=== PATIENT | male | born 1960 | race Caucasian/White ===

== ENCOUNTER 2018-03-05 09:41 | Inpatient (IN) | payer MEDICAID, OTHER ==
[2018-03-05] MEDS ORDERED: Sodium Chloride 0.9% 1,000 ML IV SCH (09:45)
--- NOTE | 2018-03-05 09:48 | ED PDOC ---
NIHSS Stroke Scale - How Severe is the Stroke Level of Consciousness: 0=Alert LOC to Questions: 0=Both comments correct LOC to commands: 0=Obeys both correctly Best Gaze: 0=Normal Visual: 0=No visual loss Facial: 2=Partial (lower face paralysis) Motor Arm - Left: 0=No drift Motor Arm - Right: 2=Falls before 10 sec Motor Leg - Left: 0=No drift Motor Leg - Right: 1=Drift before 5 sec Limb Ataxia: 1=Present Upper or Lower Sensory: 0=Normal Best Language: 0=No aphasia Dysarthia: 1=Mild to moderate slurring Extinction & Inattention (Neglect): 0=Normal, no object Score: 7 Past Medical History - Medical History PMH: Diabetes, HTN, Hypercholesterolemia, Hyperlipidemia Denies: HIV, Chronic Kidney Disease - Home Medications Home Medications: Ambulatory Orders Medication Instructions Recorded Amlodipine Besylate/Benazepril 1 cap PO DAILY 07/23/14 [Lotrel 5-40 mg Capsule] Atorvastatin [Lipitor] 10 mg PO DAILY 07/23/14 Fenofibrate,Micronized 134 mg PO DAILY 07/23/14 [Fenofibrate] Glimepiride 4 mg PO DAILY 07/23/14 MetFORMIN [glucoPHAGE] 1,000 mg PO BID 07/23/14 - Allergies Allergies/Adverse Reactions: Allergies Allergy/AdvReac Type Severity Reaction Status Date / Time No Known Allergies Allergy Verified 03/05/18 09:43 Disposition - Disposition Forms: [employer] ([place])
[2018-03-05 10:12] LABS: BASO # 0.1 K/uL (0.0-0.2); BASO % 0.8 % (0.0-2.0); EOS # 0.1 K/uL (0.0-0.7); EOS % 1.5 % (0.0-4.0); HEMOGLOBIN 13.5 g/dL (12.0-18.0); LYMPH # 2.2 K/uL (1.0-4.3); MEAN CELL VOLUME 83.1 fl (80.0-94.0); MEAN CORPUSCULAR HEMOGLOBIN 28.2 pg (27.0-31.0); MEAN CORPUSCULAR HGB CONC 33.9 g/dL (33.0-37.0); MEAN PLATELET VOLUME 8.3 fl (7.2-11.7); MONO # 0.4 K/uL (0.0-0.8); MONO % 6.6 % (0.0-10.0); NEUT # 3.9 K/uL (1.8-7.0); NEUT % 58.1 % (50.0-75.0); RBC 4.79 Mil/uL (4.40-5.90); RED CELL DISTRIBUTION WIDTH 12.8 % (11.5-14.5); WHITE BLOOD COUNT 6.7 K/uL (4.8-10.8)
[2018-03-05 10:21] LABS: PARTIAL THROMBOPLASTIN TIME 32.3 Seconds (25.6-37.1); PROTHROMBIN TIME 11.5 Seconds (9.8-13.1)
[2018-03-05 10:24] LABS: ALB/GLOB RATIO 1.3 (1.0-2.1); ALBUMIN 4.1 g/dL (3.5-5.0); ALT/SGPT 30 U/L (21-72); AST/SGOT 26 U/L (17-59); BLOOD UREA NITROGEN 14 mg/dl (9-20); CALCIUM 9.1 mg/dL (8.4-10.2); GFR AFRICAN-AMERICAN > 60; GFR NON-AFRICAN AMERICAN > 60; HDL CHOLESTEROL 49 MG/DL (30-70)
--- NOTE | 2018-03-05 10:31 | CT ---
PROCEDURE: CT HEAD WITHOUT CONTRAST. HISTORY: code stroke COMPARISON: None available. TECHNIQUE: Axial computed tomography images were obtained through the head/brain without intravenous contrast. Radiation dose: Total exam DLP = an intraspinal ionic 1442.23 mGy-cm. This CT exam was performed using one or more of the following dose reduction techniques: Automated exposure control, adjustment of the mA and/or kV according to patient size, and/or use of iterative reconstruction technique. FINDINGS: HEMORRHAGE: Intraparenchymal hemorrhage identified in the left thalamus measuring 2.2 x 2.1 x 1.9 cm (transverse by anteroposterior by superoinferior dimensions). Limited local edema is seen surrounding the hemorrhage. No definite mass effect is exerted by this hemorrhage at this time and no additional intracranial hemorrhage is identified otherwise. Motion artifacts limit this examination significantly, particularly at the upper intracranial space. Added imaging was performed to attempt to overcome this problem which was not successful BRAIN: Intra colonic hemorrhage left thalamus as discussed above. Remainder the brain appears grossly nonfocal as imaged. Motion artifacts distort this examination significantly. VENTRICLES: Unremarkable. No hydrocephalus. CALVARIUM: Unremarkable. PARANASAL SINUSES: Unremarkable as visualized. No significant inflammatory changes. MASTOID AIR CELLS: Unremarkable as visualized. No inflammatory changes. OTHER FINDINGS: None. IMPRESSION: Intrathalamic acute intracranial hemorrhage is identified with trace peripheral edema and no definite midline shift. Remainder of the examination is nonfocal though compromised by extensive motion artifacts. Findings discussed with Dr. Melchor with written down and read back verification 03/05/2018 9:55 a.m..
[2018-03-05 10:35] LABS: LDL CHOLESTEROL 98 mg/dL (0-129)
--- NOTE | 2018-03-05 10:57 | RAD ---
HISTORY: Code Stroke COMPARISON: 06/06/2013 FINDINGS: LUNGS: No active pulmonary disease. PLEURA: No significant pleural effusion identified, no pneumothorax apparent. CARDIOVASCULAR: No radiographic findings to suggest acute or significant cardiovascular disease. OSSEOUS STRUCTURES: No significant abnormalities. VISUALIZED UPPER ABDOMEN: Normal. OTHER FINDINGS: None. IMPRESSION: No active disease. No significant interval change compared to the prior examination(s).
--- NOTE | 2018-03-05 11:45 | CP.PCM.CON ---
History of Present Illness - History of Present Illness History of Present Illness: 57 yr old right handed male, originally from the [facility], who was at work when he suddenly could not move his right arm and had difficulty finding words with confusion, with headache. He was brought to [facility] ER which showed a left sided basal ganglia bleed that does not have mass effect or midline shift, appearing to be acute. There is no record of seizure at onset of event, and he is not a TPA candidate. is not always compliant with his medications, as stated by son. On exam, patient was complaining of mild confusion, although he was able to name and repeat and tell me where he is. 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 Many years pack per day smoker, drinks alcohol daily per son. All :nkda. On exam: AAox3. PERRL. CN 2-12 normal. right sided facial droop. +dysarthria, no anomia or aphasia noted. No apraxia noted. motor: strength: right arm is 3/5, deltoid and biceps are 4-5, right shaker washer is 3/5 lower limb: flexors--4/5, extensors: 4+/5 There is no appreciable sensory loss, no decrease in ft, pin in arm or leg. position and vibration sense are intact +2 dtr ul and ll bl. Toes downgoing no clonus. Past Patient History - Infectious Disease Hx of Infectious Diseases: None - Past Medical History & Family History Past Medical History?: Yes - Past Social History Smoking Status: Heavy Smoker > 10 Cigarettes Daily - CARDIAC Hx Hypercholesterolemia: Yes Hx Hypertension: Yes - PULMONARY Hx Respiratory Disorders: No - NEUROLOGICAL Hx Neurological Disorder: No - HEENT Hx HEENT Problems: No - RENAL Hx Chronic Kidney Disease: No - ENDOCRINE/METABOLIC Hx Endocrine Disorders: Yes Hx Diabetes Mellitus Type 2: Yes - HEMATOLOGICAL/ONCOLOGICAL Hx Human Immunodeficiency Virus (HIV): No - INTEGUMENTARY Hx Dermatological Problems: No - MUSCULOSKELETAL/RHEUMATOLOGICAL Hx Musculoskeletal Disorders: No - GASTROINTESTINAL Hx Gastrointestinal Disorders: No - GENITOURINARY/GYNECOLOGICAL Hx Genitourinary Disorders: No - PSYCHIATRIC Hx Psychophysiologic Disorder: No Hx Emotional Abuse: No Hx Physical Abuse: No Hx Substance Use: No - SURGICAL HISTORY Hx Surgeries: Yes Other/Comment: SHOULDER SX - ANESTHESIA Hx Anesthesia: Yes Hx Anesthesia Reactions: No Hx Malignant Hyperthermia: No Meds Allergies/Adverse Reactions: Allergies Allergy/AdvReac Type Severity Reaction Status Date / Time No Known Allergies Allergy Verified 03/05/18 09:43 - Medications Medications: Current Medications Sodium Chloride (Sodium Chloride 0.9%) 1,000 mls @ 100 mls/hr IV .Q10H GINGER Levetiracetam 750 mg/ Sodium (Chloride) 107.5 mls @ 215 mls/hr IVPB ONCE ONE Stop: 03/05/18 12:09 Results - Vital Signs Recent Vital Signs: Last Vital Signs Temp 98.4 F 03/05/18 10:41 Pulse 94 H 03/05/18 10:41 Resp 18 03/05/18 10:41 BP 149/71 03/05/18 10:41 Pulse Ox 97 03/05/18 10:41 - Labs Result Diagrams: 03/05/18 10:00 03/05/18 10:00 Labs: Laboratory Results - last 24 hr 03/05/18 03/05/18 03/05/18 10:00 10:00 10:00 WBC 6.7 RBC 4.79 Hgb 13.5 Hct 39.8 MCV 83.1 MCH 28.2 MCHC 33.9 RDW 12.8 Plt Count 212 MPV 8.3 Neut % (Auto) 58.1 Lymph % (Auto) 33.0 [place] % (Auto) 6.6 Eos % (Auto) 1.5 Baso % (Auto) 0.8 Neut # (Auto) 3.9 Lymph # (Auto) 2.2 [place] # (Auto) 0.4 Eos # (Auto) 0.1 Baso # (Auto) 0.1 PT 11.5 INR 1.0 APTT 32.3 Sodium 139 Potassium 4.1 Chloride 101 Carbon Dioxide 26 Anion Gap 16 BUN 14 Creatinine 0.8 Est GFR ( Amer) > 60 Est GFR (Non-Af Amer) > 60 Random Glucose 181 H Calcium 9.1 Total Bilirubin 0.4 AST 26 ALT 30 Alkaline Phosphatase 59 Troponin I < 0.0120 Total Protein 7.2 Albumin 4.1 Globulin 3.1 Albumin/Globulin Ratio 1.3 Triglycerides 146 Cholesterol 169 LDL Cholesterol Direct 98 HDL Cholesterol 49 Alcohol, Quantitative < 10 Blood Type Antibody Screen BBK History Checked 03/05/18 10:00 WBC RBC Hgb Hct MCV MCH MCHC RDW Plt Count MPV Neut % (Auto) Lymph % (Auto) [place] % (Auto) Eos % (Auto) Baso % (Auto) Neut # (Auto) Lymph # (Auto) [place] # (Auto) Eos # (Auto) Baso # (Auto) PT INR APTT Sodium Potassium Chloride Carbon Dioxide Anion Gap BUN Creatinine Est GFR ( Amer) Est GFR (Non-Af Amer) Random Glucose Calcium Total Bilirubin AST ALT Alkaline Phosphatase Troponin I Total Protein Albumin Globulin Albumin/Globulin Ratio Triglycerides Cholesterol LDL Cholesterol Direct HDL Cholesterol Alcohol, Quantitative Blood Type O NEGATIVE Antibody Screen Negative BBK History Checked Patient has bt - Imaging and Cardiology CT scan - head Status: Image reviewed by me, Report reviewed by me (CT head shows 2 cm by 1.9 cm thalamic hemorrhage. ) Assessment & Plan - Assessment and Plan (Free Text) Assessment: 57 yr old male with most likely hypertensive hemorrhage in left thalamus that is resulting in left sided weakness and dysarthria. At this point there is no surgical intervention. PLan: 1. Admit to ICU 2. Repeat CT head am 3. DVT prophylaxis with venodynes 4. PT.ST.OT Thank you, Dr. Clay
--- NOTE | 2018-03-05 12:40 | CP.PCM.HP ---
History of Present Illness - History of Present Illness History of Present Illness: CC: weakness HPI: 57M noncomplaint male, PMH HTN, HLD, DM, presents with acute onset of R sided facial droop, upper and lower extremity weakness, now mildly improving, also associated with some confusion and altered mental status. In ED, patient continued to have somnolence but arousable, CT showed thalamic hemorrhage. BP controlled to under 140 SBP. Neurology Consult, Dr. Clay appreciated, no surgical consult at this time. Keppra and PT, OT, Speech consulted. Admit to ICU for further close monitoring and management. HD stable, NAD. ROS: per HPI all other systems reviewed and negative PMSH: HTN, HLD, DM FH: denies SH: tobacco and ETOH daily Meds: noncomplaint Present on Admission - Present on Admission Any Indicators Present on Admission: No Past Patient History - Infectious Disease Hx of Infectious Diseases: None - Past Medical History & Family History Past Medical History?: Yes - Past Social History Smoking Status: Heavy Smoker > 10 Cigarettes Daily - CARDIAC Hx Hypercholesterolemia: Yes Hx Hypertension: Yes - PULMONARY Hx Respiratory Disorders: No - NEUROLOGICAL Hx Neurological Disorder: No - HEENT Hx HEENT Problems: No - RENAL Hx Chronic Kidney Disease: No - ENDOCRINE/METABOLIC Hx Endocrine Disorders: Yes - HEMATOLOGICAL/ONCOLOGICAL Hx AIDS: No Hx Human Immunodeficiency Virus (HIV): No - INTEGUMENTARY Hx Dermatological Problems: No - MUSCULOSKELETAL/RHEUMATOLOGICAL Hx Musculoskeletal Disorders: No - GASTROINTESTINAL Hx Gastrointestinal Disorders: No - GENITOURINARY/GYNECOLOGICAL Hx Genitourinary Disorders: No - PSYCHIATRIC Hx Psychophysiologic Disorder: No - SURGICAL HISTORY Hx Surgeries: Yes Other/Comment: SHOULDER SX - ANESTHESIA Hx Anesthesia: Yes Hx Anesthesia Reactions: No Hx Malignant Hyperthermia: No Meds Allergies/Adverse Reactions: Allergies Allergy/AdvReac Type Severity Reaction Status Date / Time No Known Allergies Allergy Verified 03/05/18 09:43 Physical Exam - Constitutional Additional comments: Vitals Reviewed GEN: WDWN, alert, cooperative HEENT: NCAT, PERRL, EOMI HEART: RRR, +S1S2, NO MRG LUNG: CTAB, NO WRR ABD: soft, NT, ND, No HSM, No masses EXT: normal pedal pulses, normal capillary refill NEURO: awake, alert, R sided upper and lower extremity weakness 2/5 SKIN: warm, dry PSYCH: normal mood, normal affect Results - Vital Signs Recent Vital Signs: Last Vital Signs Temp 98.4 F 03/05/18 12:07 Pulse 94 H 03/05/18 12:07 Resp 18 03/05/18 12:07 BP 149/71 03/05/18 12:07 Pulse Ox 100 03/05/18 12:26 - Labs Result Diagrams: 03/05/18 10:00 03/05/18 10:00 Labs: Laboratory Results - last 24 hr 03/05/18 03/05/18 03/05/18 10:00 10:00 10:00 WBC 6.7 RBC 4.79 Hgb 13.5 Hct 39.8 MCV 83.1 MCH 28.2 MCHC 33.9 RDW 12.8 Plt Count 212 MPV 8.3 Neut % (Auto) 58.1 Lymph % (Auto) 33.0 [place] % (Auto) 6.6 Eos % (Auto) 1.5 Baso % (Auto) 0.8 Neut # (Auto) 3.9 Lymph # (Auto) 2.2 [place] # (Auto) 0.4 Eos # (Auto) 0.1 Baso # (Auto) 0.1 PT 11.5 INR 1.0 APTT 32.3 Sodium 139 Potassium 4.1 Chloride 101 Carbon Dioxide 26 Anion Gap 16 BUN 14 Creatinine 0.8 Est GFR ( Amer) > 60 Est GFR (Non-Af Amer) > 60 Random Glucose 181 H Calcium 9.1 Total Bilirubin 0.4 AST 26 ALT 30 Alkaline Phosphatase 59 Troponin I < 0.0120 Total Protein 7.2 Albumin 4.1 Globulin 3.1 Albumin/Globulin Ratio 1.3 Triglycerides 146 Cholesterol 169 LDL Cholesterol Direct 98 HDL Cholesterol 49 Alcohol, Quantitative < 10 Blood Type Antibody Screen BBK History Checked 03/05/18 10:00 WBC RBC Hgb Hct MCV MCH MCHC RDW Plt Count MPV Neut % (Auto) Lymph % (Auto) [place] % (Auto) Eos % (Auto) Baso % (Auto) Neut # (Auto) Lymph # (Auto) [place] # (Auto) Eos # (Auto) Baso # (Auto) PT INR APTT Sodium Potassium Chloride Carbon Dioxide Anion Gap BUN Creatinine Est GFR ( Amer) Est GFR (Non-Af Amer) Random Glucose Calcium Total Bilirubin AST ALT Alkaline Phosphatase Troponin I Total Protein Albumin Globulin Albumin/Globulin Ratio Triglycerides Cholesterol LDL Cholesterol Direct HDL Cholesterol Alcohol, Quantitative Blood Type O NEGATIVE Antibody Screen Negative BBK History Checked Patient has bt Assessment & Plan - Assessment and Plan (Free Text) Plan: 57M noncomplaint male, PMH HTN, HLD, DM, presents with acute onset of R sided facial droop, upper and lower extremity weakness, now mildly improving, also associated with some confusion and altered mental status. In ED, patient continued to have somnolence but arousable, CT showed thalamic hemorrhage. BP controlled to under 140 SBP. Neurology Consult, Dr. Clay appreciated, no surgical consult at this time. Salo and PT, OT, Speech consulted. Admit to ICU for further close monitoring and management. HD stable, NAD. CVA - thalamic hemorrhage - R sided weakness upper and lower ext 2/5 , R facial droop - Neuro Consult: Dr. Clay - Salo given in ED - PT/OT/speech - MRI/MRA - dispo likely Rehab DM2 - A1c pending - Sliding scale - accuchecks HTN - control BP <140 - Amlodipine 10 mg, Diovan 320 mg daily - Hydralazine 10 mg IVP PRN SBP <140 HLD - continue Atorvastatin and Fenofibrate
--- NOTE | 2018-03-05 15:21 | CARD ---
APPROVED REPORT EKG Measurement Heart [id number] <Conclusion> Normal sinus rhythm Normal ECG
[2018-03-05] MEDS ORDERED: Ergocalciferol 50,000 Intl Units Cap PO SCH (16:15)
[2018-03-05] MEDS: Insulin Lispro (humaLOG) 100 Units/ml Inj SC SCH ×2 (17:03→22:46)
--- NOTE | 2018-03-05 23:33 | PN ---
DATE: 03/05/2018 LOCATION: The patient in ICU, bed 425. TIME SPENT: 45 minutes. SUBJECTIVE: The patient is seen and evaluated at the bedside. Past medical, family, surgical and social history was noted. Events in the ER reviewed. Discussed with family members at the bedside. A 57-year-old male with alcohol dependence, current smoker with hypertension, hyperlipidemia, diabetes mellitus type 2, noncompliant with diet and with medications. Admitted through emergency room with a CT suggesting hypertensive thalamic bleed. Reportedly, the patient felt headache and collapsed at the work place. In ER, the patient's vital signs showed blood pressure 141/94, temperature 98.4, heart rate of 94, respiratory rate 18, saturation 97%. CT head showed thalamic bleed without significant edema. Admitted to ICU. PHYSICAL EXAMINATION: VITAL SIGNS: Temperature 98.5, heart rate of 96, blood pressure 156/87, mean arterial pressure 110, saturation 99. Intake 650, output 700, negative balance of 50 and weight 222 pounds. Head, eyes, ears, nose and Throat: Atraumatic, normocephalic. Pupils are round and reactive to light accommodation. No nystagmus. No facial droop. Trachea central. CHEST: Bilateral breath sounds clear to auscultation. HEART: Rhythm regular. S1, S2 normal. No audible murmur. ABDOMEN: Bowel sounds present. Soft. Liver and spleen not palpable. Bladder not distended. EXTREMITIES: No clubbing, cyanosis or edema. NEUROLOGIC: Remains drowsy, but arousable. Moves all four extremities. No cranial nerve deficit. No motor deficit. Plantar flexor. CURRENT MEDICATIONS: Include Tylenol 650 q. 6 p.r.n. amlodipine at 10 mg p.o. daily, Lipitor 10 mg p.o. daily, Tricor 145 mg p.o. daily, hydralazine 10 mg IV q. 6 p.r.n., Accu-Chek with regular insulin coverage, thiamine 320 mg p.o. daily. Microbiology, none reported. Head CT done in the ER interthalamic, acute intracranial hemorrhage with trace peripheral edema noted at the midline shift. Electrocardiogram: Sinus rhythm, rate 89, HI 180 milliseconds, QT 378, QTC 459, consistent with normal EKG. Chest x-ray no active disease. ASSESSMENT: A 57-year-old male, admitted with: 1. Right thalamic bleed, history of hypertension, noncompliant with the diet and medications, history of EtOH dependence and abuse. 2. Pulmonary: No acute issues. 3. Cardiac. History of hypertension. Will maintain permissive hypertension in the context of acute CVA. Maintain blood pressure 140-160. 4. Gastrointestinal. Normal LFT. 5. Endocrine. History of diabetes. Maintain blood sugar below 180. Continue with Accu-Chek with regular insulin coverage. History of hyperlipidemia. Continue on Lipitor and Tricor. 6. Speech and swallow evaluation. Keep n.p.o. until the patient able to tolerate feeding. 7. Deep venous thrombosis prophylaxis with mechanical device.l hold gastrointestinal prophylaxis now.. Watch for alcohol withdrawal symptoms. Paul Lyons MD [id number]
[2018-03-06 05:32] LABS: HEMOGLOBIN 13.6 g/dL (12.0-18.0); MEAN CELL VOLUME 84.3 fl (80.0-94.0); MEAN CORPUSCULAR HEMOGLOBIN 28.6 pg (27.0-31.0); MEAN CORPUSCULAR HGB CONC 33.9 g/dL (33.0-37.0); RBC 4.75 Mil/uL (4.40-5.90); RED CELL DISTRIBUTION WIDTH 12.9 % (11.5-14.5); WHITE BLOOD COUNT 8.3 K/uL (4.8-10.8)
[2018-03-06 05:36] LABS: BLOOD UREA NITROGEN 11 mg/dl (9-20); GFR AFRICAN-AMERICAN > 60; GFR NON-AFRICAN AMERICAN > 60
[2018-03-06] MEDS: Insulin Lispro (humaLOG) 100 Units/ml Inj SC SCH ×4 (06:30→23:29)
--- NOTE | 2018-03-06 08:30 | CP.PCM.PN ---
Subjective - Date & Time of Evaluation Date of Evaluation: 03/06/18 Time of Evaluation: 08:30 - Subjective Subjective: Patient seen and examined bedside. Awake , alert and oriented ,in no acute distress. With some right side weakness and some dysarthria .Hemodynamically stable, afebrile.No acute issues overnight BP 165/62 HR 84 O2Sat 94% in RA WBC 8.3 Hgb 13.6 plt 219 K I/O 1680/2705 CT head :Intrathalamic acute intracranial hemorrhage is identified with trace peripheral edema and no definite midline shift. Remainder of the examination is nonfocal though compromised by extensive motion artifacts. Objective - Vital Signs/Intake and Output Vital Signs (last 24 hours): Temp Pulse Resp BP Pulse Ox 98.6 F 76 19 151/67 H 99 03/06/18 08:00 03/06/18 08:00 03/06/18 08:00 03/06/18 08:00 03/06/18 08:00 Intake and Output: 03/06/18 03/06/18 06:59 18:59 Intake Total 730 100 Output Total 1705 Balance -975 100 - Medications Medications: Current Medications Acetaminophen (Tylenol 325mg Tab) 650 mg PO Q6H PRN PRN Reason: pain 1-3 and 4-7, headache Amlodipine Besylate (Norvasc) 10 mg PO DAILY [facility] Last Admin: 03/05/18 17:03 Dose: 10 mg Atorvastatin Calcium (Lipitor) 10 mg PO DAILY [facility] Ergocalciferol (Drisdol 50,000 Intl Units Cap) 1 cap PO QWK [facility] Fenofibrate (Tricor) 145 mg PO DAILY [facility] Hydralazine HCl (Apresoline) 10 mg IV Q6 PRN PRN Reason: please give for SBP over 140 Last Admin: 03/06/18 06:09 Dose: 10 mg Insulin Human Lispro (Humalog) 0 units SC ACHS [facility] PRN Reason: Protocol Last Admin: 03/06/18 06:30 Dose: 1 unit Valsartan (Diovan) 320 mg PO DAILY [facility] Last Admin: 03/05/18 17:03 Dose: 320 mg - Labs Labs: 03/06/18 04:35 03/06/18 04:35 PT 11.5 Seconds (9.8-13.1) 03/05/18 10:00 INR 1.0 (0.9-1.2) 03/05/18 10:00 APTT 32.3 Seconds (25.6-37.1) 03/05/18 10:00 - Constitutional Appears: Non-toxic, No Acute Distress - Head Exam Head Exam: ATRAUMATIC, NORMAL INSPECTION, NORMOCEPHALIC - Eye Exam Eye Exam: EOMI, Normal appearance, PERRL Pupil Exam: NORMAL ACCOMODATION - ENT Exam ENT Exam: Mucous Membranes Moist, Normal Exam - Neck Exam Neck Exam: Full ROM, Normal Inspection - Respiratory Exam Respiratory Exam: Clear to Ausculation Bilateral, NORMAL BREATHING PATTERN. absent: Rales, Rhonchi, Wheezes - Cardiovascular Exam Cardiovascular Exam: REGULAR RHYTHM, RRR, +S1, +S2. absent: JVD - GI/Abdominal Exam GI & Abdominal Exam: Soft, Normal Bowel Sounds. absent: Distended, Guarding, Rebound - Rectal Exam Rectal Exam: Deferred - Extremities Exam Extremities Exam: Full ROM, Normal Capillary Refill, Normal Inspection. absent : Calf Tenderness, Pedal Edema - Neurological Exam Neurological Exam: Alert, Awake, Oriented x3 Additional comments: With right side weakness dysarthria - Psychiatric Exam Psychiatric exam: Normal Affect - Skin Skin Exam: Dry, Intact, Normal Color, Warm Assessment and Plan - Assessment and Plan (Free Text) Assessment: 57 y/o M male with PMH HTN, HLD, DM, not compliant with medications, presented with acute onset of R sided facial droop, upper and lower extremity weakness, associated with some confusion and altered mental status. CT head showed left thalamic hemorrhage with minimal edema and no midline shift .Neurology Consulted . No surgical intervention recommended at this time. patient admitted to ICU for close monitoring , started on Keppra. PT/OT and speech consulted 1. Acute Left thalamic hemorrhage CT head showed left thalamic hemorrhage with no midline shift Neurologically with some right side weakness and slurred speech Neurology consult appreciated continue neurochecks and repeat CT head in AM B[p control SBP < 140 MRI/ MRA head Started Keppra for seizure prevention PT/OT/speech eval 2.DM2 f/u A1c Sliding scale accuchecks diabeyic diet 3.HTN control BP <140 Amlodipine 10 mg, Diovan 320 mg daily Hydralazine 10 mg IVP PRN SBP <140 4.HLD continue Atorvastatin and Fenofibrate 5. DVT prophylaxis SCD no anticoagulation due to intracranial bleed
[2018-03-06] MEDS: Pantoprazole 40 mg Susp UD PO SCH (12:05)
--- NOTE | 2018-03-06 22:05 | PN ---
DATE: 03/06/2018 CRITICAL CARE PROGRESS NOTE LOCATION: The patient in ICU, bed 425. TIME SPENT: 35 minutes. The patient is seen and evaluated at the bedside. Past medical, surgical, family and social history reviewed. SUBJECTIVE: A 57-year-old male with alcohol dependence, current smoker with a history significant for diabetes mellitus type 2, hypertension, hyperlipidemia, noncompliant with diet and with medications, admitted with a CT suggesting hypertensive thalamic bleed with some peripheral edema. Overnight, remains lethargic and dysarthric and right-sided weakness, however, able to follow simple commands. OBJECTIVE: GENERAL: No acute distress noted, dysarthria overnight. Telemetry, sinus rhythm. VITAL SIGNS: Blood pressure 139-146/73, temperature 98.7, heart rate 78 regular, respiratory rate of 17, thoracoabdominal, saturation 99% on room air. Intake 1680, output 2705, negative balance 1025. Weight 222 pounds. HEAD, EYES, EARS, NOSE AND THROAT: Extraocular muscles intact. Pupils are equal, round, reactive to light and accommodation. Oral mucosa moist. NECK: Full range of motion. CHEST: Bilateral breath sounds clear to auscultation. HEART: Rhythm regular. S1, S2 normal intensity. No S3, S4 gallop. No audible murmur. ABDOMEN: Bowel sounds present. Soft. Liver and spleen not palpable. Bladder not distended. EXTREMITIES: Without clubbing, cyanosis, or edema. NEUROLOGIC: Alert and awake, oriented to name, place and time. Right hemiparesis, dysarthria, deep tendon reflex 2+, plantar equivocal. LABORATORY DATA: WBC 8.3, hemoglobin 13.6, hematocrit 40.1, platelet count of 219. SMA-7; sodium 140, potassium 3.9, chloride 105, CO2 23, blood urea nitrogen 11, creatinine 0.7, glucose 207. Microbiology, none reported. Head CT, intraparenchymal hemorrhage in the left thalamus measuring 2.2 x 2.1 x 1.9 cm limited local edema. No definite mass effect. CURRENT MEDICATIONS: Tylenol 650 p.o. q. 6 hours p.r.n., Norvasc 10 mg p.o. daily, Lipitor 10 mg p.o. daily, ergocalciferol of 1 capsule once a week, TriCor 145 mg daily, hydralazine 10 mg IV q. 6 for systolic pressure more than 140, and Diovan 320 mg p.o. daily. ASSESSMENT AND PLAN: 1. Neuro: Left thalamic bleed. 2. History of hypertension. 3. Noncompliant with diet and medications. 4. History of EtOH dependence and abuse. 5. Pulmonary: No acute issues. 6. Cardiac: History of hypertension. Maintain blood pressure from 140 to 160. 7. Endocrine. History of diabetes. Maintain blood sugar below 180. Continue with Accu-Chek with regular insulin coverage. Hyperlipidemia on Lipitor and Tricor. 8. Infectious Disease. No sign of aspiration. 9. Gastrointestinal. Normal LFT. History of EtOH dependence and abuse. Watch for withdrawal symptoms. We will add thiamine, folic acid and multi vitamin. 10. Renal. No acute renal issues. 11. Continue deep venous thrombosis prophylaxis with mechanical devices. Add Pepcid 20 mg p.o. twice daily. Paul Lyons MD
[2018-03-07 05:43] LABS: HEMOGLOBIN 14.2 g/dL (12.0-18.0); MEAN CELL VOLUME 84.6 fl (80.0-94.0); MEAN CORPUSCULAR HEMOGLOBIN 28.2 pg (27.0-31.0); MEAN CORPUSCULAR HGB CONC 33.3 g/dL (33.0-37.0); RBC 5.05 Mil/uL (4.40-5.90); RED CELL DISTRIBUTION WIDTH 13.3 % (11.5-14.5); WHITE BLOOD COUNT 6.4 K/uL (4.8-10.8)
[2018-03-07] MEDS: Insulin Lispro (humaLOG) 100 Units/ml Inj SC SCH ×3 (06:33→16:33)
[2018-03-07 06:44] LABS: BLOOD UREA NITROGEN 14 mg/dl (9-20); CALCIUM 9.6 mg/dL (8.4-10.2); GFR AFRICAN-AMERICAN > 60; GFR NON-AFRICAN AMERICAN > 60
--- NOTE | 2018-03-07 08:10 | CP.PCM.PN ---
Subjective - Date & Time of Evaluation Date of Evaluation: 03/07/18 Time of Evaluation: 08:00 - Subjective Subjective: Patient seen and examined bedside. Feeling a little down today. No acute issues overnight Hemodynamically stable, afebrile BP better controlled 143/81 HR 82 Unable to tolerate MRI and MRa yesterday Objective - Vital Signs/Intake and Output Vital Signs (last 24 hours): Temp Pulse Resp BP Pulse Ox 97.6 F 82 18 143/81 97 03/07/18 06:00 03/07/18 06:32 03/07/18 06:32 03/07/18 06:32 03/07/18 06:32 Intake and Output: 03/07/18 03/07/18 06:59 18:59 Intake Total 310 0 Output Total 1000 Balance -690 0 - Medications Medications: Current Medications Acetaminophen (Tylenol 325mg Tab) 650 mg PO Q6H PRN PRN Reason: pain 1-3 and 4-7, headache Last Admin: 03/06/18 20:49 Dose: 650 mg Amlodipine Besylate (Norvasc) 10 mg PO DAILY [facility] Last Admin: 03/06/18 08:32 Dose: 10 mg Atorvastatin Calcium (Lipitor) 10 mg PO DAILY [facility] Last Admin: 03/06/18 08:32 Dose: 10 mg Ergocalciferol (Drisdol 50,000 Intl Units Cap) 1 cap PO QWK [facility] Fenofibrate (Tricor) 145 mg PO DAILY [facility] Last Admin: 03/06/18 08:33 Dose: 145 mg Folic Acid (Folic Acid) 1 mg PO DAILY [facility] Last Admin: 03/06/18 12:04 Dose: 1 mg Hydralazine HCl (Apresoline) 10 mg IV Q6 PRN PRN Reason: please give for SBP over 140 Last Admin: 03/06/18 06:09 Dose: 10 mg Insulin Human Lispro (Humalog) 0 units SC ACHS [facility] PRN Reason: Protocol Last Admin: 03/07/18 06:33 Dose: 2 unit Pantoprazole Sodium (Protonix Susp) 40 mg PO DAILY [facility] Last Admin: 03/06/18 12:05 Dose: 40 mg Thiamine HCl (Vitamin B1 Tab) 100 mg PO DAILY [facility] Last Admin: 03/06/18 12:05 Dose: 100 mg Valsartan (Diovan) 320 mg PO DAILY [facility] Last Admin: 03/06/18 08:31 Dose: 320 mg - Labs Labs: 03/07/18 04:30 03/07/18 04:30 PT 11.5 Seconds (9.8-13.1) 03/05/18 10:00 INR 1.0 (0.9-1.2) 03/05/18 10:00 APTT 32.3 Seconds (25.6-37.1) 03/05/18 10:00 - Constitutional Appears: Non-toxic, No Acute Distress - Head Exam Head Exam: ATRAUMATIC, NORMAL INSPECTION, NORMOCEPHALIC - Eye Exam Eye Exam: EOMI, Normal appearance, PERRL Pupil Exam: NORMAL ACCOMODATION - ENT Exam ENT Exam: Mucous Membranes Moist, Normal Exam - Neck Exam Neck Exam: Full ROM, Normal Inspection - Respiratory Exam Respiratory Exam: Clear to Ausculation Bilateral, NORMAL BREATHING PATTERN. absent: Rales, Rhonchi, Wheezes - Cardiovascular Exam Cardiovascular Exam: REGULAR RHYTHM, RRR, +S1, +S2. absent: JVD - GI/Abdominal Exam GI & Abdominal Exam: Soft, Normal Bowel Sounds. absent: Distended, Guarding, Tenderness, Rebound - Rectal Exam Rectal Exam: Deferred - Extremities Exam Extremities Exam: Full ROM, Normal Capillary Refill, Normal Inspection. absent : Pedal Edema - Back Exam Back Exam: NORMAL INSPECTION - Neurological Exam Neurological Exam: Alert, Awake, CN II-XII Intact, Oriented x3 Additional comments: 4/5 right side weakness some slurred speech - Psychiatric Exam Psychiatric exam: Flat Affect - Skin Skin Exam: Dry, Normal Color, Warm Assessment and Plan - Assessment and Plan (Free Text) Assessment: 57 y/o M male with PMH HTN, HLD, DM, not compliant with medications, presented with acute onset of R sided facial droop, upper and lower extremity weakness, associated with some confusion and altered mental status. CT head showed left thalamic hemorrhage with minimal edema and no midline shift .Neurology Consulted . No surgical intervention recommended at this time. Patient admitted to ICU for close monitoring , started on Keppra. PT/OT and speech consulted At present neurologically an hemodynamically stable 1. Acute Left thalamic hemorrhage CT head showed left thalamic hemorrhage with no midline shift Neurologically with some right side weakness and slurred speech Neurology consult appreciated continue neurochecks BP control SBP < 140 Was unable to tolerate MRI/ MRA head yesterday. Will try again today on Keppra for seizure prevention PT/OT/speech eval appreciated . Will benefit from acute rehab 2.DM2 A1c 7.6 Sliding scale accuchecks diabetic diet start Metformin 3.HTN better controlled today control BP <140 Amlodipine 10 mg, Diovan 320 mg daily Hydralazine 10 mg IVP PRN SBP <140 4.HLD continue Atorvastatin and Fenofibrate 5. DVT prophylaxis SCD no anticoagulation due to intracranial bleed
[2018-03-07] MEDS: Pantoprazole 40 mg Susp UD PO SCH (08:50)
--- NOTE | 2018-03-07 10:49 | CP.PCM.PN ---
Subjective - Date & Time of Evaluation Date of Evaluation: 03/07/18 Time of Evaluation: 10:47 - Subjective Subjective: Mr. Motta was seen and examined at the bedside in ICU. He is alert, oriented in all spheres. He denies any headache, dizziness, blurred vision, lightheadedness, nausea, or vomiting. He is able to follow simple commands. He remains with right facial droop with right side weakness. There was no untoward events overnight. Objective - Vital Signs/Intake and Output Vital Signs (last 24 hours): Temp Pulse Resp BP Pulse Ox 97.7 F 72 15 142/82 97 03/07/18 08:00 03/07/18 10:00 03/07/18 10:00 03/07/18 10:00 03/07/18 10:00 Intake and Output: 03/07/18 03/07/18 06:59 18:59 Intake Total 310 120 Output Total 1000 250 Balance -690 -130 - Medications Medications: Current Medications Acetaminophen (Tylenol 325mg Tab) 650 mg PO Q6H PRN PRN Reason: pain 1-3 and 4-7, headache Last Admin: 03/06/18 20:49 Dose: 650 mg Amlodipine Besylate (Norvasc) 10 mg PO DAILY [facility] Last Admin: 03/07/18 08:49 Dose: 10 mg Atorvastatin Calcium (Lipitor) 10 mg PO DAILY [facility] Last Admin: 03/07/18 08:49 Dose: 10 mg Ergocalciferol (Drisdol 50,000 Intl Units Cap) 1 cap PO QWK [facility] Fenofibrate (Tricor) 145 mg PO DAILY [facility] Last Admin: 03/07/18 08:50 Dose: 145 mg Folic Acid (Folic Acid) 1 mg PO DAILY [facility] Last Admin: 03/07/18 08:49 Dose: 1 mg Hydralazine HCl (Apresoline) 10 mg IV Q6 PRN PRN Reason: please give for SBP over 140 Last Admin: 03/06/18 06:09 Dose: 10 mg Insulin Human Lispro (Humalog) 0 units SC ACHS [facility] PRN Reason: Protocol Last Admin: 03/07/18 06:33 Dose: 2 unit Metformin HCl (Glucophage) 1,000 mg PO BID [facility] Pantoprazole Sodium (Protonix Susp) 40 mg PO DAILY [facility] Last Admin: 05/23/18 08:50 Dose: 40 mg Thiamine HCl (Vitamin B1 Tab) 100 mg PO DAILY [facility] Last Admin: 03/07/18 09:55 Dose: 100 mg Valsartan (Diovan) 320 mg PO DAILY [facility] Last Admin: 03/07/18 08:50 Dose: 320 mg - Labs Labs: 03/07/18 04:30 03/07/18 04:30 PT 11.5 Seconds (9.8-13.1) 03/05/18 10:00 INR 1.0 (0.9-1.2) 03/05/18 10:00 APTT 32.3 Seconds (25.6-37.1) 03/05/18 10:00 - Constitutional Appears: No Acute Distress - Head Exam Head Exam: NORMAL INSPECTION - Neurological Exam Neurological Exam: Alert, Awake, Oriented x3 Neuro motor strength exam: Left Upper Extremity: 5, Right Upper Extremity: 4, Left Lower Extremity: 5, Right Lower Extremity: 4 Additional comments: Alert, oriented in all spheres, follows simple commands, sensation intact. Assessment and Plan (1) Intracranial hemorrhage Assessment & Plan: Case discussed with Dr. Schulz, continue all current medical, physical, occupational, and speech therapies. Recommend blood pressure control with systolic blood pressure less than 160 and diastolic blood pressure less than 90 mm/hg, head of bed elevated at least 30 degrees, glycemic control. Pending MRI of the brain Status: Acute
[2018-03-07 14:03] VITALS: O2SAT 98
--- NOTE | 2018-03-07 16:10 | MRI ---
PROCEDURE: MRI BRAIN WITHOUT CONTRAST HISTORY: cva COMPARISON: Unenhanced head CT 03/05/2018. TECHNIQUE: Multiplanar, multisequence MR images of the brain were obtained without intravenous contrast enhancement. FINDINGS: HEMORRHAGE: None DWI: Punctate areas of ischemia are questioned at the left occipital lobe posteromedially artifacts felt to be present at the right side. No lobar acute separate brain infarction identified. Hemorrhagic infarct left thalamus reiterated. BRAIN PARENCHYMA: A moderate hemorrhagic infarct is stable at the left thalamus without definitive midline shift. Local peripheral edema is seen once again as well as partial effacement of the posterior body and anterior atrium of the left lateral ventricle diffuse cerebral atrophy chronic microangiopathy are reiterated no suspicious extra-axial fluid collection appreciable. No new interval hemorrhage within the intra or extra-axial spaces. VENTRICLES: Unremarkable. No hydrocephalus. CRANIUM: Unremarkable. ORBITS: Grossly unremarkable. PARANASAL SINUSES/MASTOIDS: Clear VASCULAR SYSTEM: Skull base flow voids intact. OTHER FINDINGS: None. IMPRESSION: Stable hemorrhagic infarct left thalamus as described above with limited local edema but no significant mass effect at this time. 2 or 3 punctate ischemic infarcts are questioned at the medial left occipital lobe. Continued CT and clinical follow-up are advised.
--- NOTE | 2018-03-07 16:43 | CP.PCM.DIS ---
Provider - Provider Date of Admission: 03/05/18 10:37 Attending physician: Brenda King DO Primary care physician: rhiannon Consults: Neuro consult Pt/OT/ speech therapy Time Spent in preparation of Discharge (in minutes): 20 Hospital Course - Lab Results Lab Results: Micro Results 03/05/18 16:52 Nose MRSA Culture (Admit) - Final MRSA NOT DETECTED Most Recent Lab Values WBC 6.4 K/uL (4.8-10.8) 03/07/18 04:30 RBC 5.05 Mil/uL (4.40-5.90) 03/07/18 04:30 Hgb 14.2 g/dL (12.0-18.0) 03/07/18 04:30 Hct 42.7 % (35.0-51.0) 03/07/18 04:30 MCV 84.6 fl (80.0-94.0) 03/07/18 04:30 MCH 28.2 pg (27.0-31.0) 03/07/18 04:30 MCHC 33.3 g/dL (33.0-37.0) 03/07/18 04:30 RDW 13.3 % (11.5-14.5) 03/07/18 04:30 Plt Count 226 K/uL (130-400) 03/07/18 04:30 MPV 8.3 fl (7.2-11.7) 03/05/18 10:00 Neut % (Auto) 58.1 % (50.0-75.0) 03/05/18 10:00 Lymph % (Auto) 33.0 % (20.0-40.0) 03/05/18 10:00 [place] % (Auto) 6.6 % (0.0-10.0) 03/05/18 10:00 Eos % (Auto) 1.5 % (0.0-4.0) 03/05/18 10:00 Baso % (Auto) 0.8 % (0.0-2.0) 03/05/18 10:00 Neut # (Auto) 3.9 K/uL (1.8-7.0) 03/05/18 10:00 Lymph # (Auto) 2.2 K/uL (1.0-4.3) 03/05/18 10:00 [place] # (Auto) 0.4 K/uL (0.0-0.8) 03/05/18 10:00 Eos # (Auto) 0.1 K/uL (0.0-0.7) 03/05/18 10:00 Baso # (Auto) 0.1 K/uL (0.0-0.2) 03/05/18 10:00 PT 11.5 Seconds (9.8-13.1) 03/05/18 10:00 INR 1.0 (0.9-1.2) 03/05/18 10:00 APTT 32.3 Seconds (25.6-37.1) 03/05/18 10:00 Sodium 141 mmol/l (132-148) 03/07/18 04:30 Potassium 4.0 MMOL/L (3.6-5.0) 03/07/18 04:30 Chloride 104 mmol/L (98-107) 03/07/18 04:30 Carbon Dioxide 22 mmol/L (22-30) 03/07/18 04:30 Anion Gap 19 (10-20) 03/07/18 04:30 BUN 14 mg/dl (9-20) 03/07/18 04:30 Creatinine 0.8 mg/dl (0.8-1.5) 03/07/18 04:30 Est GFR ( Amer) > 60 03/07/18 04:30 Est GFR (Non-Af Amer) > 60 03/07/18 04:30 POC Glucose (mg/dL) 317 mg/dL (65-110) H 03/07/18 16:29 Random Glucose 277 mg/dL (75-110) H 03/07/18 04:30 Hemoglobin A1c 7.6 % (4.2-6.5) H 03/05/18 06:00 Calcium 9.6 mg/dL (8.4-10.2) 03/07/18 04:30 Total Bilirubin 0.4 mg/dl (0.2-1.3) 03/05/18 10:00 AST 26 U/L (17-59) 03/05/18 10:00 ALT 30 U/L (21-72) 03/05/18 10:00 Alkaline Phosphatase 59 U/L (38-126) 03/05/18 10:00 Troponin I < 0.0120 ng/mL (0.00-0.120) 03/05/18 10:00 Total Protein 7.2 G/DL (6.3-8.2) 03/05/18 10:00 Albumin 4.1 g/dL (3.5-5.0) 03/05/18 10:00 Globulin 3.1 gm/dL (2.2-3.9) 03/05/18 10:00 Albumin/Globulin Ratio 1.3 (1.0-2.1) 03/05/18 10:00 Triglycerides 146 mg/DL (0-149) 03/05/18 10:00 Cholesterol 169 mg/dL (0-199) 03/05/18 10:00 LDL Cholesterol Direct 98 mg/dL (0-129) 03/05/18 10:00 HDL Cholesterol 49 MG/DL (30-70) 03/05/18 10:00 Alcohol, Quantitative < 10 mg/dl (0-10) 03/05/18 10:00 Blood Type O NEGATIVE 03/05/18 10:00 Antibody Screen Negative 03/05/18 10:00 BBK History Checked Patient has bt 03/05/18 10:00 - Hospital Course Hospital Course: 57 y/o M male with PMH HTN, HLD, DM, not compliant with medications, presented with acute onset of R sided facial droop, upper and lower extremity weakness, associated with some confusion and altered mental status. CT head showed left thalamic hemorrhage with minimal edema and no midline shift .Neurology Consulted . No surgical intervention recommended at this time. Patient admitted to ICU for close monitoring , started on Keppra. PT/OT and speech consulted . At present neurologically and hemodynamically stable MRI head showed stable hemorrhage with mild edema. MRA head and neck with no abnormality ( as read by me ) Patient will benefit from physical therapy Will d/c to acute rehab 1. Acute Left thalamic hemorrhage CT head showed left thalamic hemorrhage with no midline shift MRI showed stable hemorrhage Neurologically with some right side weakness and slurred speech Neurology consult appreciated continue neurochecks BP control SBP < 140 on Keppra for seizure prevention PT/OT/speech eval appreciated . Will benefit from acute rehab so will d/c to acute rehab 2.DM2 A1c 7.6 Sliding scale accuchecks diabetic diet resumed home med Metformin Metformin 3.HTN better controlled today control BP <140 Amlodipine 10 mg, Diovan 320 mg daily 0 4.HLD continue Atorvastatin and Fenofibrate 5. DVT prophylaxis SCD no anticoagulation due to intra cranial bleed Discharge Exam - Head Exam Head Exam: NORMAL INSPECTION - Eye Exam Eye Exam: EOMI, PERRL Pupil Exam: NORMAL ACCOMODATION - ENT Exam ENT Exam: Normal Exam - Neck Exam Neck exam: Full Rom, Normal Inspection - Respiratory Exam Respiratory Exam: Clear to PA & Lateral, NORMAL BREATHING PATTERN. absent: Rales, Rhonchi, Wheezes - Cardiovascular Exam Cardiovascular Exam: REGULAR RHYTHM, RRR, +S1, +S2. absent: JVD - GI/Abdominal Exam GI & Abdominal Exam: Normal Bowel Sounds, Soft. absent: Distended, Guarding, Rebound, Tenderness - Rectal Exam Rectal Exam: Deferred - Extremities Exam Extremities exam: normal capillary refill, normal inspection, pedal pulses present - Back Exam Back exam: NORMAL INSPECTION - Neurological Exam Neurological exam: Alert, CN II-XII Intact, Oriented x3 Additional comments: with some confusion mild slurred speech - Psychiatric Exam Psychiatric exam: Normal Affect - Skin Skin Exam: Dry, Intact, Normal Color, Warm Discharge Plan - Follow Up Plan Condition: STABLE Disposition: REHAB FACILITY/REHAB UNIT Patient education suggested?: Yes Instructions: Intracerebral Hemorrhage (DC) Referrals: Leobardo Ravi MD [Family Provider] -
--- NOTE | 2018-03-07 16:59 | MRI ---
PROCEDURE: Magnetic Resonance Angiography Brain HISTORY: cva COMPARISON: None available. TECHNIQUE: 3D time of flight MR angiography of the intracranial arteries was performed. Rotating maximum intensity projection images were generated. FINDINGS: INTERNAL CAROTID ARTERIES: Moderate bilateral cavernous internal carotid artery stenoses are appreciated, greater the right than left sides. Source images demonstrate a moderate stenosis at the mid to distal right cavernous ICA which was falsely reconstructed as a high-grade stenosis in the three-dimensional reformatted dataset. The skull base, petrous, and supraclinoid segments are bilaterally widely patient. ANTERIOR CEREBRAL ARTERIES: Unremarkable. A1 and A2 segments are widely patent. Smaller distal branches unremarkable, as visualized. MIDDLE CEREBRAL ARTERIES: Unremarkable. M1 and M2 segments are widely patent. Perisylvian branches grossly symmetric. POSTERIOR CIRCULATION: Basilar Artery: Unremarkable. Distal Vertebral Arteries: Widely patent distally with codominant vertebrobasilar pattern. Posterior Cerebral Arteries: Unremarkable. Posterior Inferior Cerebellar Arteries: Unremarkable. ANEURYSM/ VASCULAR MALFORMATIONS: None. OTHER FINDINGS: None. IMPRESSION: Moderate cavernous ICA stenoses are identified bilaterally with the intracranial MR angiogram otherwise unremarkable.
--- NOTE | 2018-03-07 17:18 | MRI ---
PROCEDURE: MR Angiography of the neck without contrast HISTORY: cva COMPARISON: None available. TECHNIQUE: 3D [id number] angiography of the neck was performed. Rotating maximum intensity projection images of the cervical carotid and vertebral arteries were generated. The origins of the common carotid arteries were not visualized, which is a limitation inherent to the non-contrast time of flight technique. FINDINGS: RIGHT CAROTID ARTERIES: Common Carotid Artery: Normal. Carotid Bifurcation: [id number] atherosclerotic plaques identified at the right carotid bulb. . Internal Carotid Artery:Mild stenosis of the proximal right ICA is appreciated at its origin with remainder widely patent. External Carotid Artery (proximal branches): Normal. LEFT CAROTID ARTERIES: Common Carotid Artery: Normal. Carotid Bifurcation: Normal. Internal Carotid Artery:Normal. External Carotid Artery (proximal branches): Normal. VERTEBRAL ARTERIES: Right Vertebral Artery: Normal. Left Vertebral Artery: Normal. OTHER FINDINGS: None. IMPRESSION: No significant stenosis bilateral common or internal carotid arteries in the neck as discussed above though atherosclerosis of the right carotid bulb results in a mild proximal right ICA stenosis.
[2018-03-07 20:10] VITALS: BP 154/81; PULSE 84; RESP 24; TEMP 98.3
--- NOTE | 2018-03-08 08:12 | CARD ---
APPROVED REPORT EXAM: Two-dimensional and M-mode echocardiogram with Doppler and color Doppler. Other Information Quality : GoodRhythm : NSR INDICATION LV Function:SystolicDiastolic 2D DIMENSIONS IVSd1.03 (0.7-1.1cm)LVDd4.82 (3.9-5.9cm) LVOT Diameter2.35 (1.8-2.4cm)PWd0.93 (0.7-1.1cm) IVSs1.60 (0.8-1.2cm)LVDs3.02 (2.5-4.0cm) FS (%) 37.4 %PWs1.68 (0.8-1.2cm) M-Mode DIMENSIONS Left Atrium (MM)3.41 (2.5-4.0cm)IVSd0.91 (0.7-1.1cm) Aortic Root3.88 (2.2-3.7cm)LVDd5.50 (4.0-5.6cm) Aortic Cusp Exc.2.59 (1.5-2.0cm)PWd1.09 (0.7-1.1cm) IVSs1.65 cmFS (%) 50 % LVDs2.76 (2.0-3.8cm)PWs1.44 cm Mitral Valve MV E Vhckjzeq24.8cm/sMV DECEL [id number] A Ogbsgeib66.5cm/s MV [id number]/A ratio1.0MVA (PHT)3.42cm2 TDI Lateral E' Peak V14.26cm/sMedial E' Peak V8.47cm/sE/Lateral E'4.1 E/Medial E'6.8 Tricuspid Valve TR Peak Veoiougq197zx/sRAP [id number] Peak Gr.18mmHg [id number] LEFT VENTRICLE The left ventricle is normal size. There is normal left ventricular wall thickness. Left ventricle systolic function is normal. The Ejection Fraction is 65-70%. There is normal LV segmental wall motion. Transmitral Doppler flow pattern is Grade I-abnormal relaxation pattern. RIGHT VENTRICLE The right ventricle is normal size. There is normal right ventricular wall thickness. The right ventricular systolic function is normal. ATRIA The left atrium size is normal. The right atrium size is normal. AORTIC VALVE The aortic valve is normal in structure. No aortic regurgitation is present. There is no aortic valvular stenosis. MITRAL VALVE The mitral valve is normal in structure. There is no evidence of mitral valve prolapse. There is no mitral valve stenosis. There is no mitral valve regurgitation noted. TRICUSPID VALVE The tricuspid valve is normal in structure. There is no tricuspid valve regurgitation noted. PULMONIC VALVE The pulmonary valve is normal in structure. There is no pulmonic valvular regurgitation. GREAT VESSELS The aortic root is normal in size. The IVC is normal in size and collapses >50% with inspiration. PERICARDIAL EFFUSION The pericardium appears normal. <Conclusion> The left ventricle is normal size. There is normal left ventricular wall thickness. There is normal LV segmental wall motion. Left ventricle systolic function is normal. The Ejection Fraction is 65-70%. Transmitral Doppler flow pattern is Grade I-abnormal relaxation pattern.
== END 2018-03-07 20:40 | DRG 65 ==
LOC: H.ER 09:41 → H.ERHOLD 10:37 → H.ICU/CCU 12:00
PROVIDERS: ADMIT Student in an Organized Health Care Education/Training Program; ATTEND Student in an Organized Health Care Education/Training Program
DX: I61.0 Nontraumatic intracerebral hemorrhage in hemisphere, subcortical (principal); G81.91 Hemiplegia, unspecified affecting right dominant side; R29.810 Facial weakness; Z91.11 Patient's noncompliance with dietary regimen; Z91.14 Patient's other noncompliance with medication regimen; Z91.19 Patient's noncompliance with other medical treatment and regimen; R47.1 Dysarthria and anarthria; E11.9 Type 2 diabetes mellitus without complications; E78.00 Pure hypercholesterolemia, unspecified; E78.5 Hyperlipidemia, unspecified; F10.20 Alcohol dependence, uncomplicated; F17.210 Nicotine dependence, cigarettes, uncomplicated; I10 Essential (primary) hypertension

== ENCOUNTER 2018-03-07 15:07 | Inpatient (IN) | payer OTHER ==
[2018-03-07 21:00] VITALS: BMI 25.8
[2018-03-07] MEDS ORDERED: Ergocalciferol 50,000 Intl Units Cap PO SCH (21:45)
[2018-03-07] MEDS ORDERED: Insulin Lispro (humaLOG) 100 Units/ml Inj SC SCH (23:00)
[2018-03-08] MEDS ORDERED: Albuterol-Ipratrop 3 mg / 0.5 (3 ml) UD INH PRN (03:51)
[2018-03-08 06:20] LABS: HEMOGLOBIN 14.2 g/dL (12.0-18.0); MEAN CELL VOLUME 84.1 fl (80.0-94.0); MEAN CORPUSCULAR HEMOGLOBIN 28.4 pg (27.0-31.0); MEAN CORPUSCULAR HGB CONC 33.8 g/dL (33.0-37.0); RBC 4.98 Mil/uL (4.40-5.90); RED CELL DISTRIBUTION WIDTH 12.8 % (11.5-14.5); WHITE BLOOD COUNT 6.9 K/uL (4.8-10.8)
[2018-03-08 06:31] LABS: BLOOD UREA NITROGEN 14 mg/dl (9-20); CALCIUM 9.1 mg/dL (8.4-10.2); GFR AFRICAN-AMERICAN > 60; GFR NON-AFRICAN AMERICAN > 60
[2018-03-08] MEDS: Insulin Lispro (humaLOG) 100 Units/ml Inj SC SCH ×4 (07:53→21:41)
[2018-03-08] MEDS ORDERED: Pantoprazole 40 mg Susp UD PO SCH (09:00)
[2018-03-08] MEDS ORDERED: Insulin Lispro Mix 75/25 100 units/ml (HumaLog) 10ml SC SCH (09:00)
--- NOTE | 2018-03-08 14:51 | PCM.OPOC ---
Physiatry Overall Plan of Care - Overall Plan of Care Estimated Length of Stay in Weeks: 3 Rehab Impairment: Mobility, Gait, Balance, Coordination Etiologic Diagnosis: Cerebrovascular Accident Rehab/Medical Prognosis: Good - Anticipated Interventions Physical Therapy:: Yes Occupational Therapy:: Yes Speech Therapy:: No Recreational Therapy:: Yes - Therapy Goals Bed Mobility: Supervision Ambulation: Supervision Functional Positional Changes:: Supervision - Discharge Plan Discharge Destination: Home
--- NOTE | 2018-03-08 14:53 | CP.PCM.CON ---
History of Present Illness - History of Present Illness History of Present Illness: Dr Fields PMR consultation on Gordo Motta, born 1960, who has been admitted to [facility] for acute inpatient rehabilitation following a left CVA with right HP. He has had a good deal of neurological return but still requires assistance with ADLs and ambulation. Review of Systems - Constitutional Constitutional: absent: Anorexia, Chills - EENT Eyes: absent: Blind Spots Ears: absent: Ear Discharge Nose/Mouth/Throat: absent: Nasal Congestion - Cardiovascular Cardiovascular: absent: Chest Pain - Respiratory Respiratory: absent: Dyspnea, Wheezing - Gastrointestinal Gastrointestinal: absent: Belching, Constipation - Musculoskeletal Musculoskeletal: absent: Back Pain - Integumentary Integumentary: absent: Bleeding Lesions, Unusual Bruising, Wounds - Neurological Neurological: Weakness (right UE/LE). absent: Abnormal Movements, Confusion Past Patient History - Infectious Disease Hx of Infectious Diseases: None - Past Medical History & Family History Past Medical History?: Yes - Past Social History Smoking Status: Heavy Smoker > 10 Cigarettes Daily Alcohol: > 2 Drinks/Day Home Situation {Lives}: With Family - CARDIAC Hx Hypercholesterolemia: Yes Hx Hypertension: Yes - PULMONARY Hx Respiratory Disorders: No - NEUROLOGICAL Hx Neurological Disorder: No - HEENT Hx HEENT Problems: No - RENAL Hx Chronic Kidney Disease: No - ENDOCRINE/METABOLIC Hx Diabetes Mellitus Type 2: Yes - HEMATOLOGICAL/ONCOLOGICAL Hx Human Immunodeficiency Virus (HIV): No - INTEGUMENTARY Hx Dermatological Problems: No - MUSCULOSKELETAL/RHEUMATOLOGICAL Hx Falls: No - GASTROINTESTINAL Hx Gastrointestinal Disorders: No - GENITOURINARY/GYNECOLOGICAL Hx Genitourinary Disorders: No - PSYCHIATRIC Hx Psychophysiologic Disorder: No Hx Emotional Abuse: No Hx Physical Abuse: No Hx Substance Use: No - SURGICAL HISTORY Hx Surgeries: Yes Other/Comment: SHOULDER SX - ANESTHESIA Hx Anesthesia: Yes Hx Anesthesia Reactions: No Hx Malignant Hyperthermia: No Meds Allergies/Adverse Reactions: Allergies Allergy/AdvReac Type Severity Reaction Status Date / Time No Known Allergies Allergy Verified 03/07/18 21:00 - Medications Medications: Current Medications Acetaminophen (Tylenol 325mg Tab) 650 mg PO Q6H PRN PRN Reason: pain 1-3 and 4-7, headache Amlodipine Besylate (Norvasc) 10 mg PO DAILY [facility] Last Admin: 03/08/18 09:24 Dose: 10 mg Atorvastatin Calcium (Lipitor) 10 mg PO HS [facility] Ergocalciferol (Drisdol 50,000 Intl Units Cap) 1 cap PO QWK [facility] Fenofibrate (Tricor) 145 mg PO DAILY [facility] Last Admin: 03/08/18 09:24 Dose: 145 mg Folic Acid (Folic Acid) 1 mg PO DAILY [facility] Last Admin: 03/08/18 09:25 Dose: 1 mg Insulin Human Lispro (Humalog) 0 units SC ACHS [facility] PRN Reason: Protocol Last Admin: 03/08/18 12:46 Dose: 3 units Metformin HCl (Glucophage) 1,000 mg PO BID [facility] Last Admin: 03/08/18 09:24 Dose: 1,000 mg Pantoprazole Sodium (Protonix Susp) 40 mg PO DAILY [facility] Last Admin: 03/08/18 09:25 Dose: 40 mg Thiamine HCl (Vitamin B1 Tab) 100 mg PO DAILY [facility] Last Admin: 03/08/18 09:23 Dose: 100 mg Valsartan (Diovan) 320 mg PO DAILY [facility] Last Admin: 03/08/18 09:25 Dose: 320 mg Physical Exam - Constitutional Appears: Well, Non-toxic, No Acute Distress - Head Exam Head Exam: ATRAUMATIC, NORMAL INSPECTION, NORMOCEPHALIC - Eye Exam Eye Exam: EOMI - ENT Exam ENT Exam: Mucous Membranes Moist - Respiratory Exam Respiratory Exam: NORMAL BREATHING PATTERN - Cardiovascular Exam Cardiovascular Exam: REGULAR RHYTHM - GI/Abdominal Exam GI & Abdominal Exam: Distended. absent: Firm, Guarding - Extremities Exam Extremities exam: Negative for: calf tenderness - Neurological Exam Neurological exam: Alert, CN II-XII Intact, Oriented x3 - Psychiatric Exam Psychiatric exam: Flat Affect - Skin Skin Exam: Warm Results - Vital Signs Recent Vital Signs: Last Vital Signs Temp 97.6 F 03/08/18 08:40 Pulse 92 H 03/08/18 09:24 Resp 20 03/08/18 08:40 BP 149/73 03/08/18 09:24 Pulse Ox 97 03/08/18 08:40 - Labs Result Diagrams: 03/08/18 05:25 03/08/18 05:25 Labs: Laboratory Results - last 24 hr 03/07/18 03/08/18 03/08/18 22:21 05:25 05:25 WBC 6.9 RBC 4.98 Hgb 14.2 Hct 41.8 MCV 84.1 MCH 28.4 MCHC 33.8 RDW 12.8 Plt Count 213 Sodium 138 Potassium 4.0 Chloride 103 Carbon Dioxide 23 Anion Gap 16 BUN 14 Creatinine 0.7 L Est GFR ( Amer) > 60 Est GFR (Non-Af Amer) > 60 POC Glucose (mg/dL) 240 H Random Glucose 280 H Calcium 9.1 03/08/18 03/08/18 05:46 12:01 WBC RBC Hgb Hct MCV MCH MCHC RDW Plt Count Sodium Potassium Chloride Carbon Dioxide Anion Gap BUN Creatinine Est GFR ( Amer) Est GFR (Non-Af Amer) POC Glucose (mg/dL) 242 H 225 H Random Glucose Calcium Assessment & Plan - Assessment and Plan (Free Text) Assessment: right UE/LE grossly 4-/5 PT/OT to continue to help increase functional independence Team conference for d/c planning Pain: controlled Vascular: no evidence of DVT GI: No evidence of constipation or diarrhea Patient is an excellent acute rehabilitation candidate and will have focused PT , OT and recreational therapy to help facilitate a safe and appropriate d/c plan I have discussed with him in great detail the perils associated with tobacco and ETOH abuse and health issues and in particular smoking with CVA. His was present and understood the concern. He wanted a cigarette while in the ICU, so less of an agreement on stopping from him. Impairment code: 01.2
[2018-03-08] MEDS ORDERED: guaiFENesin DM 200 mg-20 mg/10 ml UD PO PRN (18:09)
--- NOTE | 2018-03-08 18:21 | CP.PCM.HP ---
History of Present Illness - History of Present Illness History of Present Illness: 57 yo male with history of HTN, HLD and DM2, not compliant with medications, admitted on 03/05/2018 because of right sided facial droop associated with right upper and lower extremity weakness and some confusion. CT scan of the head showed left thalamic hemorrhage with minimal edema but no midline shift. Neurosurgery was consulted and surgical intervention was recommended. Neurology was likewise consulted and advised patient be put on Keppra. Patient was admitted in ICU but now being hemodynamically and neurologically stable he was transferred and admitted in Acute Rehab for continuation of PT. Present on Admission - Present on Admission Any Indicators Present on Admission: No History of DVT/PE: No History of Uncontrolled Diabetes: No Urinary Catheter: No Decubitus Ulcer Present: No Review of Systems - Review of Systems All systems: reviewed and no additional remarkable complaints except (aside from those mentioned above, 12 point system review were negative by me) Past Patient History - Infectious Disease Hx of Infectious Diseases: None - Past Medical History & Family History Past Medical History?: Yes - Past Social History Smoking Status: Heavy Smoker > 10 Cigarettes Daily Chewing Tobacco Use: No Cigar Use: No Alcohol: > 2 Drinks/Day Home Situation {Lives}: With Family - CARDIAC Hx Hypercholesterolemia: Yes Hx Hypertension: Yes - PULMONARY Hx Respiratory Disorders: No - NEUROLOGICAL Hx Neurological Disorder: No - HEENT Hx HEENT Problems: No - RENAL Hx Chronic Kidney Disease: No - ENDOCRINE/METABOLIC Hx Diabetes Mellitus Type 2: Yes - HEMATOLOGICAL/ONCOLOGICAL Hx Human Immunodeficiency Virus (HIV): No - INTEGUMENTARY Hx Dermatological Problems: No - MUSCULOSKELETAL/RHEUMATOLOGICAL Hx Falls: No - GASTROINTESTINAL Hx Gastrointestinal Disorders: No - GENITOURINARY/GYNECOLOGICAL Hx Genitourinary Disorders: No - PSYCHIATRIC Hx Psychophysiologic Disorder: No Hx Emotional Abuse: No Hx Physical Abuse: No Hx Substance Use: No - SURGICAL HISTORY Hx Surgeries: Yes Other/Comment: SHOULDER SX - ANESTHESIA Hx Anesthesia: Yes Hx Anesthesia Reactions: No Hx Malignant Hyperthermia: No Meds Allergies/Adverse Reactions: Allergies Allergy/AdvReac Type Severity Reaction Status Date / Time No Known Allergies Allergy Verified 03/07/18 21:00 Physical Exam - Constitutional Appears: No Acute Distress - Head Exam Head Exam: ATRAUMATIC - Eye Exam Eye Exam: absent: Scleral icterus - ENT Exam ENT Exam: Mucous Membranes Moist - Neck Exam Neck exam: Negative for: Meningismus - Respiratory Exam Respiratory Exam: absent: Rales, Rhonchi, Wheezes, Respiratory Distress - Cardiovascular Exam Cardiovascular Exam: REGULAR RHYTHM, +S1, +S2 - GI/Abdominal Exam GI & Abdominal Exam: Soft. absent: Tenderness - Rectal Exam Rectal Exam: Deferred - Extremities Exam Extremities exam: Positive for: normal capillary refill, pedal pulses present - Back Exam Back exam: NORMAL INSPECTION - Neurological Exam Neurological exam: Alert, Oriented x3 - Psychiatric Exam Psychiatric exam: Normal Affect - Skin Skin Exam: Dry, Intact Results - Vital Signs Recent Vital Signs: Last Vital Signs Temp 97.6 F 03/08/18 08:40 Pulse 92 H 03/08/18 09:24 Resp 20 03/08/18 08:40 BP 149/73 03/08/18 09:24 Pulse Ox 97 03/08/18 08:40 - Labs Result Diagrams: 03/08/18 05:25 03/08/18 05:25 Labs: Laboratory Results - last 24 hr 03/07/18 03/08/18 03/08/18 22:21 05:25 05:25 WBC 6.9 RBC 4.98 Hgb 14.2 Hct 41.8 MCV 84.1 MCH 28.4 MCHC 33.8 RDW 12.8 Plt Count 213 Sodium 138 Potassium 4.0 Chloride 103 Carbon Dioxide 23 Anion Gap 16 BUN 14 Creatinine 0.7 L Est GFR ( Amer) > 60 Est GFR (Non-Af Amer) > 60 POC Glucose (mg/dL) 240 H Random Glucose 280 H Calcium 9.1 03/08/18 03/08/18 03/08/18 05:46 12:01 17:16 WBC RBC Hgb Hct MCV MCH MCHC RDW Plt Count Sodium Potassium Chloride Carbon Dioxide Anion Gap BUN Creatinine Est GFR ( Amer) Est GFR (Non-Af Amer) POC Glucose (mg/dL) 242 H 225 H 279 H Random Glucose Calcium Assessment & Plan - Assessment and Plan (Free Text) Assessment: 57 yo male with history of HTN, HLD and DM2, not compliant with medications, admitted on 03/05/2018 because of right sided facial droop associated with right upper and lower extremity weakness and some confusion. CT scan of the head showed left thalamic hemorrhage with minimal edema but no midline shift. Neurosurgery was consulted and surgical intervention was recommended. Neurology was likewise consulted and advised patient be put on Keppra. Patient was admitted in ICU but now being hemodynamically and neurologically stable he was transferred and admitted in Acute Rehab for continuation of PT. 1. Acute Left thalamic hemorrhage MRI showed stable hemorrhage continue Keppra for seizure prevention physiatry consult with Dr Fields continue PT/OT/speech 2.DM2 HgA1c 7.6 accuchecks ACHS with medium dose coverage with Lispro diabetic diet continue Metformin 1000mg PO BID 3.HTN BP stable continue Amlodipine 10 mg and Diovan 320 mg daily 4.HLD continue Atorvastatin and Fenofibrate 5. DVT prophylaxis venodyne boots while in bed avoid anticoagulation and anti-platelets because of intracranial bleed
[2018-03-09] MEDS: Insulin Lispro (humaLOG) 100 Units/ml Inj SC SCH ×4 (07:10→22:16)
[2018-03-09] MEDS: Pantoprazole 40 mg EC Tab PO SCH (08:30)
[2018-03-09] MEDS ORDERED: Ergocalciferol 50,000 Intl Units Cap PO SCH (15:48)
[2018-03-09] MEDS: Ergocalciferol 50,000 Intl Units Cap PO SCH (21:45)
[2018-03-10] MEDS: Pantoprazole 40 mg EC Tab PO SCH (08:28)
[2018-03-10] MEDS: Insulin Lispro (humaLOG) 100 Units/ml Inj SC SCH ×4 (08:31→21:00)
--- NOTE | 2018-03-10 19:23 | CP.PCM.PN ---
Subjective - Date & Time of Evaluation Date of Evaluation: 03/10/18 Time of Evaluation: 19:23 - Subjective Subjective: Patient seen in the room denies sob/cp, afebrile ambulating 50' with quad cane no calf tenderness continue current care Objective - Vital Signs/Intake and Output Vital Signs (last 24 hours): Temp Pulse Resp BP Pulse Ox 98.1 F 88 20 144/85 98 03/10/18 07:58 03/10/18 08:26 03/10/18 07:58 03/10/18 08:28 03/10/18 07:58 - Medications Medications: Current Medications Acetaminophen (Tylenol 325mg Tab) 650 mg PO Q6H PRN PRN Reason: pain 1-3 and 4-7, headache Amlodipine Besylate (Norvasc) 10 mg PO DAILY [facility] Last Admin: 03/10/18 08:28 Dose: 10 mg Atorvastatin Calcium (Lipitor) 10 mg PO HS [facility] Last Admin: 03/09/18 21:45 Dose: 10 mg Ergocalciferol (Drisdol 50,000 Intl Units Cap) 1 cap PO FRI@1999 [facility] Last Admin: 03/09/18 21:45 Dose: 1 cap Fenofibrate (Tricor) 145 mg PO DAILY [facility] Last Admin: 03/10/18 08:28 Dose: 145 mg Folic Acid (Folic Acid) 1 mg PO DAILY [facility] Last Admin: 03/10/18 08:28 Dose: 1 mg Guaifenesin/Dextromethorphan (Robitussin Dm) 10 ml PO Q6 PRN PRN Reason: Cough Insulin Human Lispro (Humalog) 0 units SC [facility] PRN Reason: Protocol Last Admin: 03/10/18 17:00 Dose: 3 units Metformin HCl (Glucophage) 1,000 mg PO BID [facility] Last Admin: 03/10/18 17:00 Dose: 1,000 mg Pantoprazole Sodium (Protonix Ec Tab) 40 mg PO DAILY [facility] Last Admin: 03/10/18 08:28 Dose: 40 mg Thiamine HCl (Vitamin B1 Tab) 100 mg PO DAILY [facility] Last Admin: 03/10/18 08:28 Dose: 100 mg Valsartan (Diovan) 320 mg PO DAILY [facility] Last Admin: 03/10/18 08:32 Dose: 320 mg - Labs Labs: 03/08/18 05:25 03/08/18 05:25
[2018-03-11] MEDS: Insulin Lispro (humaLOG) 100 Units/ml Inj SC SCH ×4 (06:55→21:10)
[2018-03-11] MEDS: Pantoprazole 40 mg EC Tab PO SCH (09:06)
[2018-03-12] MEDS: Insulin Lispro (humaLOG) 100 Units/ml Inj SC SCH ×4 (06:45→21:15)
[2018-03-12] MEDS: Pantoprazole 40 mg EC Tab PO SCH (08:44)
--- NOTE | 2018-03-12 11:37 | CP.PCM.PN ---
Subjective - Date & Time of Evaluation Date of Evaluation: 03/12/18 Time of Evaluation: 11:00 - Subjective Subjective: Patient was seen and examined at bedside. He relates that his therapies are going well. He has no new complaints and feels well. No new events or updates as per nursing staff. Objective - Vital Signs/Intake and Output Vital Signs (last 24 hours): Temp Pulse Resp BP Pulse Ox 97.7 F 82 18 137/74 96 03/12/18 07:58 03/12/18 08:47 03/12/18 07:58 03/12/18 08:43 03/12/18 07:58 - Medications Medications: Current Medications Acetaminophen (Tylenol 325mg Tab) 650 mg PO Q6H PRN PRN Reason: pain 1-3 and 4-7, headache Amlodipine Besylate (Norvasc) 10 mg PO DAILY [facility] Last Admin: 03/12/18 08:43 Dose: 10 mg Atorvastatin Calcium (Lipitor) 10 mg PO HS [facility] Last Admin: 03/11/18 21:11 Dose: 10 mg Ergocalciferol (Drisdol 50,000 Intl Units Cap) 1 cap PO FRI@1999 [facility] Last Admin: 03/09/18 21:45 Dose: 1 cap Fenofibrate (Tricor) 145 mg PO DAILY [facility] Last Admin: 03/12/18 08:44 Dose: 145 mg Folic Acid (Folic Acid) 1 mg PO DAILY [facility] Last Admin: 03/12/18 08:43 Dose: 1 mg Guaifenesin/Dextromethorphan (Robitussin Dm) 10 ml PO Q6 PRN PRN Reason: Cough Insulin Human Lispro (Humalog) 0 units SC ACHS [facility] PRN Reason: Protocol Last Admin: 03/12/18 06:45 Dose: 3 units Metformin HCl (Glucophage) 1,000 mg PO BID [facility] Last Admin: 03/12/18 08:43 Dose: 1,000 mg Pantoprazole Sodium (Protonix Ec Tab) 40 mg PO DAILY [facility] Last Admin: 03/12/18 08:44 Dose: 40 mg Thiamine HCl (Vitamin B1 Tab) 100 mg PO DAILY [facility] Last Admin: 03/12/18 08:44 Dose: 100 mg Valsartan (Diovan) 320 mg PO DAILY [facility] Last Admin: 03/12/18 08:42 Dose: 320 mg - Labs Labs: 03/08/18 05:25 05/24/18 05:25 - Additional Findings Additional findings: Physical exam: Constitutional- cooperative, awake, alert Head- NCAT, PERRL Eye- PERRL, EOMI ENT- normal exam, MMM. Neck- normal inspection, supple, no JVD Respiratory- CTAB, no wheezes rales rhonchi Cardiovascular- RRR, +S1, +S2 no MRG GI/Abdominal- normal bowel sounds, soft, no mass, no hsm Skin- warm, dry Extremities Exam- normal capillary refill, normal inspection Neurological Exam- alert, awake, oriented Psych- normal mood, normal affect Assessment and Plan - Assessment and Plan (Free Text) Plan: 57 yo male with history of HTN, HLD and DM2, not compliant with medications, admitted on 03/05/2018 because of right sided facial droop associated with right upper and lower extremity weakness and some confusion. CT scan of the head showed left thalamic hemorrhage with minimal edema but no midline shift. Neurosurgery was consulted and surgical intervention was recommended. Neurology was likewise consulted and advised patient be put on Keppra. Patient was admitted in ICU but now being hemodynamically and neurologically stable he was transferred and admitted in Acute Rehab for continuation of PT. 1. Acute Left thalamic hemorrhage MRI showed stable hemorrhage continue Keppra for seizure prevention physiatry consult with Dr Fields continue PT/OT/speech 2.DM2 HgA1c 7.6 accuchecks ACHS with medium dose coverage with Lispro diabetic diet continue Metformin 1000mg PO BID Added Glipizide 5 mg ACB 3.HTN BP stable continue Amlodipine 10 mg and Diovan 320 mg daily 4.HLD continue Atorvastatin and Fenofibrate 5. DVT prophylaxis venodyne boots while in bed avoid anticoagulation and anti-platelets because of intracranial bleed
[2018-03-13] MEDS: Insulin Lispro (humaLOG) 100 Units/ml Inj SC SCH ×4 (06:49→21:16)
[2018-03-13] MEDS: Pantoprazole 40 mg EC Tab PO SCH (08:40)
--- NOTE | 2018-03-13 13:18 | PSY.TMCNF ---
Nursing - Vital Signs Vital Signs (Last 8 hours): Vital Signs 03/13/18 03/13/18 03/13/18 07:55 08:40 09:00 Temperature 96.8 F L 96.8 F L Pulse Rate 72 72 Respiratory 18 18 Rate Blood Pressure 144/81 144/81 144/81 O2 Sat by Pulse 97 Oximetry Pain: 0 - Precautions: Precautions: Fall Prevention - Medications/Other Issues Comment: On Telesitter for safety. - Consults Comment: Dr. Fields - Toileting Toileting: Maximal Assistance - Bladder Management Bladder Pattern: Normal Voiding Method: Toilet, Urinal Bladder Management: Supervision Frequency of Accidents: 0 - Bowel Management Bowel Pattern: Normal Bowel Management: Supervision Frequency of Accidents: 0 - Transfers Transfers: Moderate Assistance - ADL's ADL's: Moderate Assistance - Patient/Family Teaching Comments: Care post CVA and Safety Precautions - Goals/Time Frame Comments: Per multidisciplinary care plan and goals - Provider Provider: Nyla COLLIER RN CRRN Physical Therapy - Bed Mobility Bed Mobility: Contact Guard - Transfers Wheelchair to Mat: Minimal Assistance Sit to Stand: Minimal Assistance - Ambulation Level of Assistance: Minimal Assistance, Moderate Assistance Distance (ft.): 75 Assistive Devices: Wide base quad cane Orthoses: R ankle df wrap - Stair Negotiation Stairs: Level of Assistance: Moderate Assistance Number of Stairs: 3 Handrails: Bilateral - Standing Balance Static Stand: Contact Guard Assist Dynamic Stand: Minimal Assistance - Pain Pain (assessed during therapy session): 0 - Insight/Carryover Insight/Carryover: Good - Patient/Family Education Comment: Pt/family ed for CVA recovery, safety - Assessment/Plan Assessment: Pt continues to show consistent progress towrads goals. Very motivated and is increasing ind with functional transfers. - Goals Timeframe: 1 week Goals: Mod I with toileting. Mod I with LE dressing. Mod I with feeding. Mod I with UE dressing - Provider License Number: [id number] Occupational Therapy - Arousal/Attention/Orientation Patient Orientation: Person, Place, Time, Appropriate to Age, Appropriate to Situation - ADL/IADL Self Feeding: Set-up Help Grooming: Set-up Help Bathing-Upper Extremity: Supervision, Verbal Cues Bathing-Lower Extremity: Moderate Assistance Dressing-Upper Extremity: Supervision, Verbal Cues, Set-up Help Dressing-Lower Extremity: Verbal Cues, Moderate Assistance - Sitting Balance Static Sitting: Supervision Dynamic Sitting: Reaches across midline, Requires supervision - Transfers Wheelchair to Bed Transfers: Minimal Assistance Toilet Transfers: Minimal Assistance - Wheelchair Management Level of Assistance: Moderate Assistance - Upper Extremity Status Left Upper Extremity Comment: 4+/5 - Pain Pain (assessed during therapy session): 0 - Insight/Carryover Insight/Carryover: Good - Patient/Family Education Comment: Pt/family ed for CVA recovery, safety - Assessment/Plan Assessment: Pt continues to show consistent progress towrads goals. Very motivated and is increasing ind with functional transfers. - Goals Timeframe: 1 week Goals: Mod I with toileting. Mod I with LE dressing. Mod I with feeding. Mod I with UE dressing - Provider Therapist: ASTON Pope/Brenda Speech Therapy - Consult Information Patient on Program: Yes Medical Diagnosis: ICH - Assessment Expressive Language Impairment: Mild Receptive Language Impairment: Mild Speech/Articulation Impairment: Mild - Plan Assessment: Pt continues to show consistent progress towrads goals. Very motivated and is increasing ind with functional transfers. - Provider Therapist: Zunilda Wells License Number: [id number] Recreational Therapy - Participation Participation: Participates in Individual and/or Group Sessions - Attendance Attendance: 3-5 times per week - Activities Leisure Activities: Cards and Games - Socialization Level of Socialization: Initiates/interacts freely with care givers and peer - Diversional Time Diversional Time: likes to play dominoes, watch television - Assessment Assessment/Plan: Pt continues to show consistent progress towrads goals. Very motivated and is increasing ind with functional transfers. - Provider Therapist: Argelia Aguillon, [employer] #[id number] Nutrition - Current Diet Current Diet/ Supplement/ Feedings: Heart healthy, Moderate consistent carbohydrate diet with thin liquids - Appetite Percent Meal Consumed: 75-100% - Comments Comments: Care post CVA and Safety Precautions - Assessment/Goals/Time Frame Assessment/Goals/Time Frame: On Telesitter for safety. - Provider Provider: Nadiya Santana MS, RD Case Management - Discharge Plan Discharge Plan: Home with significant other/family Rehabilitation Plan - Treatment Plan Treatment Plan: Physical Therapy, Occupational Therapy, Speech, Dietary, Patient /Family Education - Discharge Plan Estimated Date of Discharge: 03/31/18 Discharge to: Home
[2018-03-14] MEDS: Insulin Lispro (humaLOG) 100 Units/ml Inj SC SCH ×4 (06:56→21:00)
[2018-03-14] MEDS: Pantoprazole 40 mg EC Tab PO SCH (08:31)
--- NOTE | 2018-03-14 09:58 | CP.PCM.PN ---
Subjective - Date & Time of Evaluation Date of Evaluation: 03/14/18 Time of Evaluation: 13:00 - Subjective Subjective: Patient seen and examined bedside. Feeling well. Participating with PT and improving. Hemodynamically stable, afebrile. No acute issues overnight complains of constipation Objective - Vital Signs/Intake and Output Vital Signs (last 24 hours): Temp Pulse Resp BP Pulse Ox 97.5 F L 67 18 142/74 96 03/14/18 07:34 03/14/18 07:34 03/14/18 07:34 03/14/18 08:32 03/14/18 07:34 - Medications Medications: Current Medications Acetaminophen (Tylenol 325mg Tab) 650 mg PO Q6H PRN PRN Reason: pain 1-3 and 4-7, headache Amlodipine Besylate (Norvasc) 10 mg PO DAILY [facility] Last Admin: 03/14/18 08:32 Dose: 10 mg Atorvastatin Calcium (Lipitor) 10 mg PO HS [facility] Last Admin: 03/13/18 21:16 Dose: 10 mg Ergocalciferol (Drisdol 50,000 Intl Units Cap) 1 cap PO FRI@1999 [facility] Last Admin: 03/09/18 21:45 Dose: 1 cap Fenofibrate (Tricor) 145 mg PO DAILY [facility] Last Admin: 03/14/18 08:32 Dose: 145 mg Folic Acid (Folic Acid) 1 mg PO DAILY [facility] Last Admin: 03/14/18 08:32 Dose: 1 mg Glipizide (Glucotrol) 5 mg PO ACB [facility] Last Admin: 03/14/18 06:33 Dose: 5 mg Guaifenesin/Dextromethorphan (Robitussin Dm) 10 ml PO Q6 PRN PRN Reason: Cough Insulin Human Lispro (Humalog) 0 units SC ACHS [facility] PRN Reason: Protocol Last Admin: 03/14/18 06:56 Dose: 3 units Metformin HCl (Glucophage) 1,000 mg PO BID [facility] Last Admin: 03/14/18 08:32 Dose: 1,000 mg Pantoprazole Sodium (Protonix Ec Tab) 40 mg PO DAILY [facility] Last Admin: 03/14/18 08:31 Dose: 40 mg Thiamine HCl (Vitamin B1 Tab) 100 mg PO DAILY [facility] Last Admin: 03/14/18 08:31 Dose: 100 mg Valsartan (Diovan) 320 mg PO DAILY [facility] Last Admin: 03/14/18 08:31 Dose: 320 mg - Labs Labs: 03/08/18 05:25 03/08/18 05:25 - Constitutional Appears: Well, Non-toxic, No Acute Distress - Head Exam Head Exam: ATRAUMATIC, NORMAL INSPECTION, NORMOCEPHALIC - Eye Exam Eye Exam: EOMI, Normal appearance, PERRL Pupil Exam: NORMAL ACCOMODATION - ENT Exam ENT Exam: Mucous Membranes Moist, Normal Exam - Neck Exam Neck Exam: Full ROM, Normal Inspection - Respiratory Exam Respiratory Exam: Clear to Ausculation Bilateral. absent: Rales, Rhonchi, Wheezes - Cardiovascular Exam Cardiovascular Exam: REGULAR RHYTHM, RRR, +S1, +S2. absent: JVD - GI/Abdominal Exam GI & Abdominal Exam: Soft, Normal Bowel Sounds. absent: Distended, Firm, Guarding, Tenderness, Rebound - Rectal Exam Rectal Exam: Deferred - Extremities Exam Extremities Exam: Full ROM, Normal Capillary Refill, Normal Inspection. absent : Calf Tenderness, Pedal Edema - Back Exam Back Exam: NORMAL INSPECTION - Neurological Exam Neurological Exam: Alert, Awake, Oriented x3 Additional comments: right side weakness - Psychiatric Exam Psychiatric exam: Normal Affect - Skin Skin Exam: Dry, Warm Assessment and Plan - Assessment and Plan (Free Text) Assessment: 57 yo male with history of HTN, HLD and DM2, not compliant with medications, admitted on 03/05/2018 because of right sided facial droop associated with right upper and lower extremity weakness and some confusion. CT scan of the head showed left thalamic hemorrhage with minimal edema but no midline shift. Neurosurgery was consulted and surgical intervention was not recommended. Neurology was likewise consulted and advised patient be put on Keppra. Patient was admitted in ICU but now being hemodynamically and neurologically stable he was transferred and admitted in Acute Rehab for continuation of PT. At present in acute rehab, participating with PRT and improving 1. Acute Left thalamic hemorrhage participating with PT and improving MRI showed stable hemorrhage continue Keppra for seizure prevention physiatry consult with Dr Fields appreciated continue PT/OT/speech 2.DM2 HgA1c 7.6 accuchecks ACHS with medium dose coverage with Lispro diabetic diet continue Metformin 1000mg PO BID Added Glipizide 5 mg ACB 3.HTN BP stable continue Amlodipine 10 mg and Diovan 320 mg daily 4.HLD continue Atorvastatin and Fenofibrate 5. DVT prophylaxis venodyne boots while in bed avoid anticoagulation and anti-platelets because of intracranial bleed
--- NOTE | 2018-03-14 21:31 | PN ---
PHYSIATRY PROGRESS NOTE DATE: 03/14/[address] Fields SUBJECTIVE: The patient is feeling fine. No acute complaints at present. PHYSICAL EXAMINATION: VITAL SIGNS: Stable. NECK: Supple. CHEST: Symmetrical. HEART: Sounds S1 and S2. GASTROINTESTINAL: Abdominal area is benign. EXTREMITIES: No clubbing, cyanosis, or edema. IMPRESSION: Intracranial hemorrhage, diabetes, hypertension, and hypercholesterolemia. PLAN: Physical therapy, occupational therapy, and recreational therapy. The patient for discharge on the , again covering for Dr. Fields. Piotr Hogan MD
[2018-03-15] MEDS: Insulin Lispro (humaLOG) 100 Units/ml Inj SC SCH ×4 (07:02→21:07)
[2018-03-15] MEDS: Pantoprazole 40 mg EC Tab PO SCH (08:12)
[2018-03-16] MEDS: Insulin Lispro (humaLOG) 100 Units/ml Inj SC SCH ×4 (06:58→22:05)
[2018-03-16] MEDS: Pantoprazole 40 mg EC Tab PO SCH (08:37)
--- NOTE | 2018-03-16 10:43 | CP.PCM.CON ---
History of Present Illness - History of Present Illness History of Present Illness: Pt is a 57 year old male admitted to [facility] [place] following a CVA. See medical record for complete medical history and medication list. Social History: pt lives with his of 35+ years. Pt has two children- in [place] and out of state. Very positive relationships reported with family members. Ed.Voc: pt raised in the [facility], grade school education. Pt came to the 20 Years ago. Pt has a restaraunt with - Psych history denied, pt denied a psych history , pt reported daily alcohol abuse. 0 drug abuse. Substance abuse counseling provided. MSE: pt alert, oriented to year, month, day,date, affect constricted, mood depressed over status, no si hi ideation, no psychosis. dx: Adjustment Dx with depression Alcohol Dependence Plan: Continued Sup therapy Past Patient History - Infectious Disease Hx of Infectious Diseases: None - Past Medical History & Family History Past Medical History?: Yes - Past Social History Smoking Status: Heavy Smoker > 10 Cigarettes Daily Chewing Tobacco Use: No Cigar Use: No Alcohol: > 2 Drinks/Day Home Situation {Lives}: With Family - CARDIAC Hx Hypercholesterolemia: Yes Hx Hypertension: Yes - PULMONARY Hx Respiratory Disorders: No - NEUROLOGICAL Hx Neurological Disorder: No - HEENT Hx HEENT Problems: No - RENAL Hx Chronic Kidney Disease: No - ENDOCRINE/METABOLIC Hx Diabetes Mellitus Type 2: Yes - HEMATOLOGICAL/ONCOLOGICAL Hx Human Immunodeficiency Virus (HIV): No - INTEGUMENTARY Hx Dermatological Problems: No - MUSCULOSKELETAL/RHEUMATOLOGICAL Hx Falls: No - GASTROINTESTINAL Hx Gastrointestinal Disorders: No - GENITOURINARY/GYNECOLOGICAL Hx Genitourinary Disorders: No - PSYCHIATRIC Hx Psychophysiologic Disorder: No Hx Emotional Abuse: No Hx Physical Abuse: No Hx Substance Use: No - SURGICAL HISTORY Hx Surgeries: Yes Other/Comment: SHOULDER SX - ANESTHESIA Hx Anesthesia: Yes Hx Anesthesia Reactions: No Hx Malignant Hyperthermia: No Meds Allergies/Adverse Reactions: Allergies Allergy/AdvReac Type Severity Reaction Status Date / Time No Known Allergies Allergy Verified 03/07/18 21:00 - Medications Medications: Current Medications Acetaminophen (Tylenol 325mg Tab) 650 mg PO Q6H PRN PRN Reason: pain 1-3 and 4-7, headache Last Admin: 03/15/18 13:31 Dose: 650 mg Amlodipine Besylate (Norvasc) 10 mg PO DAILY [facility] Last Admin: 03/16/18 08:37 Dose: 10 mg Atorvastatin Calcium (Lipitor) 10 mg PO HS [facility] Last Admin: 03/15/18 21:45 Dose: 10 mg Ergocalciferol (Drisdol 50,000 Intl Units Cap) 1 cap PO FRI@1999 [facility] Last Admin: 03/09/18 21:45 Dose: 1 cap Fenofibrate (Tricor) 145 mg PO DAILY [facility] Last Admin: 03/16/18 08:37 Dose: 145 mg Folic Acid (Folic Acid) 1 mg PO DAILY [facility] Last Admin: 03/16/18 08:36 Dose: 1 mg Glipizide (Glucotrol) 5 mg PO ACB [facility] Last Admin: 03/16/18 06:58 Dose: 5 mg Guaifenesin/Dextromethorphan (Robitussin Dm) 10 ml PO Q6 PRN PRN Reason: Cough Insulin Human Lispro (Humalog) 0 units SC ACHS [facility] PRN Reason: Protocol Last Admin: 03/16/18 06:58 Dose: 4 units Metformin HCl (Glucophage) 1,000 mg PO BID [facility] Last Admin: 03/16/18 08:36 Dose: 1,000 mg Pantoprazole Sodium (Protonix Ec Tab) 40 mg PO DAILY [facility] Last Admin: 03/16/18 08:37 Dose: 40 mg Thiamine HCl (Vitamin B1 Tab) 100 mg PO DAILY [facility] Last Admin: 03/16/18 08:37 Dose: 100 mg Valsartan (Diovan) 320 mg PO DAILY [facility] Last Admin: 03/16/18 08:36 Dose: 320 mg Results - Vital Signs Recent Vital Signs: Last Vital Signs Temp 97.5 F L 03/16/18 08:27 Pulse 71 03/16/18 08:37 Resp 18 03/16/18 08:27 BP 142/78 03/16/18 08:37 Pulse Ox 98 03/16/18 08:27 - Labs Result Diagrams: 03/08/18 05:25 03/08/18 05:25 Labs: Laboratory Results - last 24 hr 03/15/18 03/15/18 03/15/18 11:45 15:36 21:07 POC Glucose (mg/dL) 251 H 150 H 253 H 03/16/18 06:56 POC Glucose (mg/dL) 276 H
--- NOTE | 2018-03-16 14:08 | CP.PCM.PN ---
Subjective - Date & Time of Evaluation Date of Evaluation: 03/16/18 Time of Evaluation: 10:00 - Subjective Subjective: Patient was seen and examined at bedside. Has no new c/o currently. States he feels well. No acute issues overnight. Objective - Vital Signs/Intake and Output Vital Signs (last 24 hours): Temp Pulse Resp BP Pulse Ox 97.5 F L 71 18 142/78 98 03/16/18 08:27 03/16/18 08:37 03/16/18 08:27 03/16/18 08:37 03/16/18 08:27 - Medications Medications: Current Medications Acetaminophen (Tylenol 325mg Tab) 650 mg PO Q6H PRN PRN Reason: pain 1-3 and 4-7, headache Last Admin: 03/15/18 13:31 Dose: 650 mg Amlodipine Besylate (Norvasc) 10 mg PO DAILY [facility] Last Admin: 03/16/18 08:37 Dose: 10 mg Atorvastatin Calcium (Lipitor) 10 mg PO HS [facility] Last Admin: 03/15/18 21:45 Dose: 10 mg Ergocalciferol (Drisdol 50,000 Intl Units Cap) 1 cap PO FRI@1999 [facility] Last Admin: 03/09/18 21:45 Dose: 1 cap Fenofibrate (Tricor) 145 mg PO DAILY [facility] Last Admin: 03/16/18 08:37 Dose: 145 mg Folic Acid (Folic Acid) 1 mg PO DAILY [facility] Last Admin: 03/16/18 08:36 Dose: 1 mg Glipizide (Glucotrol) 5 mg PO ACB [facility] Last Admin: 03/16/18 06:58 Dose: 5 mg Guaifenesin/Dextromethorphan (Robitussin Dm) 10 ml PO Q6 PRN PRN Reason: Cough Insulin Human Lispro (Humalog) 0 units SC ACHS [facility] PRN Reason: Protocol Last Admin: 03/16/18 11:36 Dose: 2 units Metformin HCl (Glucophage) 1,000 mg PO BID [facility] Last Admin: 03/16/18 08:36 Dose: 1,000 mg Pantoprazole Sodium (Protonix Ec Tab) 40 mg PO DAILY [facility] Last Admin: 03/16/18 08:37 Dose: 40 mg Thiamine HCl (Vitamin B1 Tab) 100 mg PO DAILY [facility] Last Admin: 03/16/18 08:37 Dose: 100 mg Valsartan (Diovan) 320 mg PO DAILY [facility] Last Admin: 03/16/18 08:36 Dose: 320 mg - Labs Labs: 03/08/18 05:25 03/08/18 05:25 - Additional Findings Additional findings: Physical exam: Constitutional- cooperative, awake, alert Head- NCAT, PERRL Eye- PERRL, EOMI ENT- normal exam, MMM. Neck- normal inspection, supple, no JVD Respiratory- CTAB, no wheezes rales rhonchi Cardiovascular- RRR, +S1, +S2 no MRG GI/Abdominal- normal bowel sounds, soft, no mass, no hsm Skin- warm, dry Extremities Exam- normal capillary refill, normal inspection Neurological Exam- + right sided weakness. alert, awake, oriented Psych- normal mood, normal affect Assessment and Plan - Assessment and Plan (Free Text) Plan: Assessment: 57 yo male with history of HTN, HLD and DM2, not compliant with medications, admitted on 03/05/2018 because of right sided facial droop associated with right upper and lower extremity weakness and some confusion. CT scan of the head showed left thalamic hemorrhage with minimal edema but no midline shift. Neurosurgery was consulted and surgical intervention was not recommended. Neurology was likewise consulted and advised patient be put on Keppra. Patient was admitted in ICU but now being hemodynamically and neurologically stable he was transferred and admitted in Acute Rehab for continuation of PT. At present in acute rehab, participating with PRT and improving 1. Acute Left thalamic hemorrhage participating with PT and improving MRI showed stable hemorrhage continue Keppra for seizure prevention physiatry consult with Dr Fields appreciated continue PT/OT/speech 2.DM2 HgA1c 7.6 accuchecks ACHS with medium dose coverage with Lispro diabetic diet continue Metformin 1000mg PO BID Added Glipizide 5 mg ACB 3.HTN BP stable continue Amlodipine 10 mg and Diovan 320 mg daily 4.HLD continue Atorvastatin and Fenofibrate 5. Adjustment Disorder Psychology consultation 5. DVT prophylaxis venodyne boots while in bed avoid anticoagulation and anti-platelets because of intracranial bleed
[2018-03-16] MEDS: Ergocalciferol 50,000 Intl Units Cap PO SCH (22:05)
[2018-03-17] MEDS: Insulin Lispro (humaLOG) 100 Units/ml Inj SC SCH ×4 (06:45→21:30)
[2018-03-17] MEDS: Pantoprazole 40 mg EC Tab PO SCH (08:27)
--- NOTE | 2018-03-17 10:25 | CP.PCM.PN ---
Subjective - Date & Time of Evaluation Date of Evaluation: 03/16/18 Time of Evaluation: 13:30 - Subjective Subjective: no acute complaints at present Objective - Vital Signs/Intake and Output Vital Signs (last 24 hours): Temp Pulse Resp BP Pulse Ox 98.1 F 76 19 124/71 97 03/17/18 08:00 03/17/18 08:27 03/17/18 08:00 03/17/18 08:27 03/17/18 08:00 - Medications Medications: Current Medications Acetaminophen (Tylenol 325mg Tab) 650 mg PO Q6H PRN PRN Reason: pain 1-3 and 4-7, headache Last Admin: 03/15/18 13:31 Dose: 650 mg Amlodipine Besylate (Norvasc) 10 mg PO DAILY [facility] Last Admin: 03/17/18 08:27 Dose: 10 mg Atorvastatin Calcium (Lipitor) 10 mg PO HS [facility] Last Admin: 03/16/18 22:04 Dose: 10 mg Ergocalciferol (Drisdol 50,000 Intl Units Cap) 1 cap PO FRI@1999 [facility] Last Admin: 03/16/18 22:05 Dose: 1 cap Fenofibrate (Tricor) 145 mg PO DAILY [facility] Last Admin: 03/17/18 08:28 Dose: 145 mg Folic Acid (Folic Acid) 1 mg PO DAILY [facility] Last Admin: 03/17/18 08:28 Dose: 1 mg Glipizide (Glucotrol) 5 mg PO ACB [facility] Last Admin: 03/17/18 06:45 Dose: 5 mg Guaifenesin/Dextromethorphan (Robitussin Dm) 10 ml PO Q6 PRN PRN Reason: Cough Insulin Human Lispro (Humalog) 0 units SC [facility] PRN Reason: Protocol Last Admin: 03/17/18 06:45 Dose: 3 units Metformin HCl (Glucophage) 1,000 mg PO BID [facility] Last Admin: 03/17/18 08:27 Dose: 1,000 mg Pantoprazole Sodium (Protonix Ec Tab) 40 mg PO DAILY [facility] Last Admin: 03/17/18 08:27 Dose: 40 mg Thiamine HCl (Vitamin B1 Tab) 100 mg PO DAILY [facility] Last Admin: 03/17/18 08:28 Dose: 100 mg Valsartan (Diovan) 320 mg PO DAILY [facility] Last Admin: 03/17/18 08:26 Dose: 320 mg - Labs Labs: 03/08/18 05:25 03/08/18 05:25 - Head Exam Head Exam: ATRAUMATIC, NORMAL INSPECTION, NORMOCEPHALIC - Eye Exam Eye Exam: EOMI, Normal appearance Pupil Exam: NORMAL ACCOMODATION, PERRL - ENT Exam ENT Exam: Mucous Membranes Moist - Neck Exam Neck Exam: Full ROM, Normal Inspection - Respiratory Exam Respiratory Exam: Clear to Ausculation Bilateral, NORMAL BREATHING PATTERN - Cardiovascular Exam Cardiovascular Exam: REGULAR RHYTHM - GI/Abdominal Exam GI & Abdominal Exam: Soft, Normal Bowel Sounds - Rectal Exam Rectal Exam: NORMAL INSPECTION - Exam External exam: NORMAL EXTERNAL EXAM - Extremities Exam Extremities Exam: Full ROM, Normal Capillary Refill - Back Exam Back Exam: NORMAL INSPECTION - Neurological Exam Neurological Exam: Alert, Awake Additional comments: weakness - Psychiatric Exam Psychiatric exam: Normal Affect, Normal Mood - Skin Skin Exam: Dry, Normal Color, Warm Assessment and Plan (1) Intracranial hemorrhage Assessment & Plan: plan to continue with physical, occupational rec therapy covering for Dr Fields Status: Acute (2) Pancreatitis Status: Acute
--- NOTE | 2018-03-17 10:57 | CP.PCM.PN ---
Subjective - Date & Time of Evaluation Date of Evaluation: 03/15/18 Time of Evaluation: 12:00 - Subjective Subjective: no acute complaints at present Objective - Vital Signs/Intake and Output Vital Signs (last 24 hours): Temp Pulse Resp BP Pulse Ox 98.1 F 76 19 124/71 97 03/17/18 08:00 03/17/18 08:27 03/17/18 08:00 03/17/18 08:27 03/17/18 08:00 - Medications Medications: Current Medications Acetaminophen (Tylenol 325mg Tab) 650 mg PO Q6H PRN PRN Reason: pain 1-3 and 4-7, headache Last Admin: 03/15/18 13:31 Dose: 650 mg Amlodipine Besylate (Norvasc) 10 mg PO DAILY [facility] Last Admin: 03/17/18 08:27 Dose: 10 mg Atorvastatin Calcium (Lipitor) 10 mg PO HS [facility] Last Admin: 03/16/18 22:04 Dose: 10 mg Ergocalciferol (Drisdol 50,000 Intl Units Cap) 1 cap PO FRI@1999 [facility] Last Admin: 03/16/18 22:05 Dose: 1 cap Fenofibrate (Tricor) 145 mg PO DAILY [facility] Last Admin: 03/17/18 08:28 Dose: 145 mg Folic Acid (Folic Acid) 1 mg PO DAILY [facility] Last Admin: 03/17/18 08:28 Dose: 1 mg Glipizide (Glucotrol) 5 mg PO ACB [facility] Last Admin: 03/17/18 06:45 Dose: 5 mg Guaifenesin/Dextromethorphan (Robitussin Dm) 10 ml PO Q6 PRN PRN Reason: Cough Insulin Human Lispro (Humalog) 0 units SC [facility] PRN Reason: Protocol Last Admin: 03/17/18 06:45 Dose: 3 units Metformin HCl (Glucophage) 1,000 mg PO BID [facility] Last Admin: 03/17/18 08:27 Dose: 1,000 mg Pantoprazole Sodium (Protonix Ec Tab) 40 mg PO DAILY [facility] Last Admin: 03/17/18 08:27 Dose: 40 mg Thiamine HCl (Vitamin B1 Tab) 100 mg PO DAILY [facility] Last Admin: 03/17/18 08:28 Dose: 100 mg Valsartan (Diovan) 320 mg PO DAILY [facility] Last Admin: 03/17/18 08:26 Dose: 320 mg - Labs Labs: 03/08/18 05:25 03/08/18 05:25 - Head Exam Head Exam: ATRAUMATIC, NORMAL INSPECTION, NORMOCEPHALIC - Eye Exam Eye Exam: EOMI, Normal appearance Pupil Exam: NORMAL ACCOMODATION, PERRL - ENT Exam ENT Exam: Mucous Membranes Moist, Normal Exam - Neck Exam Neck Exam: Full ROM - Respiratory Exam Respiratory Exam: Clear to Ausculation Bilateral, NORMAL BREATHING PATTERN - Cardiovascular Exam Cardiovascular Exam: REGULAR RHYTHM - GI/Abdominal Exam GI & Abdominal Exam: Soft, Normal Bowel Sounds - Rectal Exam Rectal Exam: NORMAL INSPECTION - Extremities Exam Extremities Exam: Full ROM, Normal Capillary Refill, Normal Inspection - Back Exam Back Exam: NORMAL INSPECTION - Neurological Exam Neurological Exam: Alert, Awake Additional comments: weakness - Psychiatric Exam Psychiatric exam: Normal Affect, Normal Mood - Skin Skin Exam: Dry, Normal Color Assessment and Plan (1) Intracranial hemorrhage Assessment & Plan: plan for range of motion, strengthening, transfers and gait training, Physical, occupational therapy program Covering for Dr Fields who is away. Continue with Dc planning. Monitor skin Status: Acute (2) Pancreatitis Status: Acute
[2018-03-18] MEDS: Insulin Lispro (humaLOG) 100 Units/ml Inj SC SCH ×4 (07:08→21:18)
[2018-03-18] MEDS: Pantoprazole 40 mg EC Tab PO SCH (08:51)
[2018-03-19] MEDS: Insulin Lispro (humaLOG) 100 Units/ml Inj SC SCH ×4 (07:22→21:34)
[2018-03-19] MEDS: Pantoprazole 40 mg EC Tab PO SCH (08:35)
--- NOTE | 2018-03-19 12:22 | CP.PCM.PN ---
Subjective - Date & Time of Evaluation Date of Evaluation: 03/19/18 Time of Evaluation: 11:00 - Subjective Subjective: Patient seen and examined bedside. Feeling better . Participating with PT and improved . Hemodynamically stable, afebrile. No acute issues overnight. Objective - Vital Signs/Intake and Output Vital Signs (last 24 hours): Temp Pulse Resp BP Pulse Ox 96.4 F L 77 18 124/77 97 03/19/18 07:49 03/19/18 08:34 03/19/18 07:49 03/19/18 08:34 03/19/18 07:49 - Medications Medications: Current Medications Acetaminophen (Tylenol 325mg Tab) 650 mg PO Q6H PRN PRN Reason: .Headache or Pain (scale 4-10) Amlodipine Besylate (Norvasc) 10 mg PO DAILY [facility] Last Admin: 03/19/18 08:34 Dose: 10 mg Atorvastatin Calcium (Lipitor) 10 mg PO HS [facility] Last Admin: 03/18/18 21:18 Dose: 10 mg Ergocalciferol (Drisdol 50,000 Intl Units Cap) 1 cap PO FRI@2000 [facility] Last Admin: 03/16/18 22:05 Dose: 1 cap Fenofibrate (Tricor) 145 mg PO DAILY [facility] Last Admin: 03/19/18 08:35 Dose: 145 mg Folic Acid (Folic Acid) 1 mg PO DAILY [facility] Last Admin: 03/19/18 08:34 Dose: 1 mg Glipizide (Glucotrol) 5 mg PO ACB [facility] Last Admin: 03/19/18 07:22 Dose: 5 mg Guaifenesin/Dextromethorphan (Robitussin Dm) 10 ml PO Q6 PRN PRN Reason: Cough Insulin Human Lispro (Humalog) 0 units SC [facility] PRN Reason: Protocol Last Admin: 03/19/18 07:22 Dose: 3 units Metformin HCl (Glucophage) 1,000 mg PO BID [facility] Last Admin: 03/19/18 08:34 Dose: 1,000 mg Pantoprazole Sodium (Protonix Ec Tab) 40 mg PO DAILY [facility] Last Admin: 03/19/18 08:35 Dose: 40 mg Thiamine HCl (Vitamin B1 Tab) 100 mg PO DAILY [facility] Stop: 03/19/18 14:00 Last Admin: 03/19/18 08:35 Dose: 100 mg Thiamine HCl (Vitamin B1 Tab) 100 mg PO DAILY [facility] Valsartan (Diovan) 320 mg PO DAILY [facility] Last Admin: 03/19/18 08:34 Dose: 320 mg - Labs Labs: 03/08/18 05:25 03/08/18 05:25 - Constitutional Appears: Non-toxic, No Acute Distress - Head Exam Head Exam: ATRAUMATIC, NORMAL INSPECTION, NORMOCEPHALIC - Eye Exam Eye Exam: EOMI, Normal appearance, PERRL Pupil Exam: NORMAL ACCOMODATION - ENT Exam ENT Exam: Mucous Membranes Moist, Normal Exam - Neck Exam Neck Exam: Full ROM, Normal Inspection - Respiratory Exam Respiratory Exam: Clear to Ausculation Bilateral, NORMAL BREATHING PATTERN. absent: Rales, Rhonchi, Wheezes - Cardiovascular Exam Cardiovascular Exam: REGULAR RHYTHM, RRR, +S1, +S2. absent: JVD - GI/Abdominal Exam GI & Abdominal Exam: Soft, Normal Bowel Sounds. absent: Distended, Guarding, Tenderness, Rebound - Rectal Exam Rectal Exam: Deferred - Extremities Exam Extremities Exam: Full ROM, Normal Capillary Refill, Normal Inspection. absent : Pedal Edema - Back Exam Back Exam: NORMAL INSPECTION - Neurological Exam Neurological Exam: Alert, Awake, Oriented x3 Additional comments: right facial droop right side weakness slurred speech - Psychiatric Exam Psychiatric exam: Normal Affect, Normal Mood - Skin Skin Exam: Dry, Intact, Normal Color, Warm Assessment and Plan - Assessment and Plan (Free Text) Assessment: 57 yo male with history of HTN, HLD and DM2, not compliant with medications, admitted on 03/05/2018 because of right sided facial droop associated with right upper and lower extremity weakness and some confusion. CT scan of the head showed left thalamic hemorrhage with minimal edema but no midline shift. Neurosurgery was consulted and surgical intervention was not recommended. Neurology was likewise consulted and advised patient be put on Keppra. Patient was admitted in ICU but now being hemodynamically and neurologically stable he was transferred and admitted in Acute Rehab for continuation of PT. At present in acute rehab, participating with PRT and improving 1. Acute Left thalamic hemorrhage participating with PT and improving MRI showed stable hemorrhage physiatry consult with Dr Fields appreciated continue PT/OT/speech 2.DM2 HgA1c 7.6 accuchecks ACHS with medium dose coverage with Lispro diabetic diet continue Metformin 1000mg PO BID and Glipizide 5 mg ACB 3.HTN BP stable continue Amlodipine 10 mg and Diovan 320 mg daily 4.HLD continue Atorvastatin and Fenofibrate 5. Adjustment Disorder Psychology consult appreciated 5. DVT prophylaxis venodyne boots while in bed avoid anticoagulation and anti-platelets because of intracranial bleed
[2018-03-20] MEDS: Insulin Lispro (humaLOG) 100 Units/ml Inj SC SCH ×4 (07:35→22:11)
[2018-03-20] MEDS: Pantoprazole 40 mg EC Tab PO SCH (08:23)
--- NOTE | 2018-03-20 12:27 | CP.PCM.PN ---
Subjective - Date & Time of Evaluation Date of Evaluation: 03/20/18 Time of Evaluation: 12:25 - Subjective Subjective: pt doing well, participating iwth PT no complaints at this time no cp, no sob, no calf tenderness hd stable nad Objective - Vital Signs/Intake and Output Vital Signs (last 24 hours): Temp Pulse Resp BP Pulse Ox 96.0 F L 79 20 112/63 99 03/20/18 09:00 03/20/18 09:00 03/20/18 09:00 03/20/18 09:00 03/20/18 08:00 Vitals Reviewed GEN: WDWN, alert, cooperative HEENT: NCAT, PERRL, EOMI HEART: RRR, +S1S2, NO MRG LUNG: CTAB, NO WRR ABD: soft, NT, ND, No HSM, No masses EXT: normal pedal pulses, normal capillary refill NEURO: awake, alert SKIN: warm, dry PSYCH: normal mood, normal affect - Medications Medications: Current Medications Acetaminophen (Tylenol 325mg Tab) 975 mg PO Q8 [facility] Acetaminophen (Tylenol 325mg Tab) 650 mg PO Q12H PRN PRN Reason: Fever >100.4 F Amlodipine Besylate (Norvasc) 10 mg PO DAILY [facility] Last Admin: 03/20/18 08:24 Dose: 10 mg Atorvastatin Calcium (Lipitor) 10 mg PO HS [facility] Last Admin: 03/19/18 21:29 Dose: 10 mg Ergocalciferol (Drisdol 50,000 Intl Units Cap) 1 cap PO FRI@2000 [facility] Last Admin: 03/16/18 22:05 Dose: 1 cap Fenofibrate (Tricor) 145 mg PO DAILY [facility] Last Admin: 03/20/18 08:23 Dose: 145 mg Folic Acid (Folic Acid) 1 mg PO DAILY [facility] Last Admin: 03/20/18 08:23 Dose: 1 mg Glipizide (Glucotrol) 5 mg PO ACB [facility] Last Admin: 03/20/18 07:34 Dose: 5 mg Guaifenesin/Dextromethorphan (Robitussin Dm) 10 ml PO Q6 PRN PRN Reason: Cough Insulin Human Lispro (Humalog) 0 units SC ACHS [facility] PRN Reason: Protocol Last Admin: 03/20/18 12:14 Dose: 3 units Metformin HCl (Glucophage) 1,000 mg PO BID [facility] Last Admin: 03/20/18 08:23 Dose: 1,000 mg Pantoprazole Sodium (Protonix Ec Tab) 40 mg PO DAILY [facility] Last Admin: 03/20/18 08:23 Dose: 40 mg Thiamine HCl (Vitamin B1 Tab) 100 mg PO DAILY [facility] Last Admin: 03/20/18 08:23 Dose: 100 mg Valsartan (Diovan) 320 mg PO DAILY [facility] Last Admin: 03/20/18 08:24 Dose: 320 mg - Labs Labs: 03/08/18 05:25 03/08/18 05:25 Assessment and Plan - Assessment and Plan (Free Text) Plan: 57 yo male with history of HTN, HLD and DM2, not compliant with medications, admitted on 03/05/2018 because of right sided facial droop associated with right upper and lower extremity weakness and some confusion. CT scan of the head showed left thalamic hemorrhage with minimal edema but no midline shift. Neurosurgery was consulted and surgical intervention was not recommended. Neurology was likewise consulted and advised patient be put on Keppra. Patient was admitted in ICU but now being hemodynamically and neurologically stable he was transferred and admitted in Acute Rehab for continuation of PT. At present in acute rehab, participating with PRT and improving 1. Acute Left thalamic hemorrhage participating with PT and improving MRI showed stable hemorrhage physiatry consult with Dr Fields appreciated continue PT/OT/speech 2.DM2 HgA1c 7.6 accuchecks ACHS with medium dose coverage with Lispro diabetic diet continue Metformin 1000mg PO BID and Glipizide 5 mg ACB 3.HTN BP stable continue Amlodipine 10 mg and Diovan 320 mg daily 4.HLD continue Atorvastatin and Fenofibrate 5. Adjustment Disorder Psychology consult appreciated 5. DVT prophylaxis venodyne boots while in bed avoid anticoagulation and anti-platelets because of intracranial bleed
--- NOTE | 2018-03-20 13:20 | PSY.TMCNF ---
Nursing - Vital Signs Vital Signs (Last 8 hours): Vital Signs 03/20/18 03/20/18 03/20/18 08:00 08:24 09:00 Temperature 96.0 F L 96.0 F L Pulse Rate 79 79 Respiratory 20 20 Rate Blood Pressure 112/63 112/63 112/63 O2 Sat by Pulse 99 Oximetry Pain: 0 - Precautions: Precautions: Fall Prevention - Medications/Other Issues Comment: - Still on [employer] telesitter for safety. - Consults Comment: Dr. Fields, Dr. Alexis - Toileting Toileting: Moderate Assistance - Bladder Management Bladder Pattern: Normal Voiding Method: Toilet, Urinal Bladder Management: Supervision Frequency of Accidents: 0 - Bowel Management Bowel Pattern: Normal Bowel Management: Supervision Frequency of Accidents: 0 - Transfers Transfers: Moderate Assistance - ADL's ADL's: Moderate Assistance - Patient/Family Teaching Comments: Care post CVA and Safety Precautions - Goals/Time Frame Comments: Per multidisciplinary care plan and goals - Provider Provider: Nyla CALLAHANN RN CRRN Physical Therapy - Bed Mobility Bed Mobility: Contact Guard - Transfers Wheelchair to Mat: Minimal Assistance Sit to Stand: Contact Guard - Ambulation Level of Assistance: Minimal Assistance Distance (ft.): 140 Assistive Devices: Wide base quad cane Orthoses: R df assist ADRIA wrap - Stair Negotiation Stairs: Level of Assistance: Verbal Cues, Minimal Assistance, Moderate Assistance Number of Stairs: 6 Stairs: Assistive Devices: Left Handrail, Right Handrail - Standing Balance Static Stand: Contact Guard Assist Dynamic Stand: Minimal Assistance - Pain Pain (assessed during therapy session): 4 Management Techniques: Medication Comment: intermittent pain in R hamstring - Insight/Carryover Insight/Carryover: Fair - Patient/Family Education Comment: Repeated pt and family education with pts for CVA recovery and safety - Assessment/Plan Assessment: Patient is a 57 yo male presents to [facility] acute rehab program s/p intracranial hemorrhage. PRECAUTIONS: FALLS, SAFETY, CARDIAC, SEIZURES, DIABETIC,ADVANCED BITE SIZED. Pt presents with impaired activity tolerance, impaired dynamic standing balance, impaired motor planning/FM coordination RUE, impaired ability to cross midline, diadodiskinesia and impaired safety awareness with bouts of impulsivity. Patient is doing well in therapy and is very motivated. He is progressing towards meeting his STGS/LTGS. Pt can complete transfers with CGA/ min A transferring onto R side. Pt is able to complete ub self care with supervision and requires mod/max A for lb self care. Pts R UE motor planning and coordination is improving as well . Pt's biggest barrier to progress is impulsivity , poor safety awareness and poor motor control. Reccommend continue IP OT services 5-6x/week to maximize pt's functional independence w/in his home and with completion of iadls . Reccommned caregiver training prior to d/c - Goals Timeframe: 2 weeks Goals: Mod I with toileting. Mod I with LE dressing. Mod I with feeding. Mod I with UE dressing - Provider License Number: [id number] Occupational Therapy - Arousal/Attention/Orientation Patient Orientation: Person, Place, Time, Appropriate to Age, Appropriate to Situation - ADL/IADL Self Feeding: Set-up Help Grooming: Set-up Help Bathing-Upper Extremity: Supervision, Verbal Cues Bathing-Lower Extremity: Verbal Cues, Set-up Help, Contact Guard Dressing-Upper Extremity: Supervision, Verbal Cues, Set-up Help Dressing-Lower Extremity: Verbal Cues, Contact Guard, Minimal Assistance - Sitting Balance Static Sitting: Supervision Dynamic Sitting: Reaches across midline, Requires supervision - Transfers Wheelchair to Bed Transfers: Contact Guard Toilet Transfers: Contact Guard Tub Transfers: Contact Guard, Minimal Assistance - Wheelchair Management Level of Assistance: Supervision, Verbal Cues, Minimal Assistance Distance (ft.): 150 - Upper Extremity Status Left Upper Extremity Comment: 4+/5 - Pain Pain (assessed during therapy session): 4 Alleviating Techniques: Medication Comment: intermittent pain in R hamstring - Insight/Carryover Insight/Carryover: Fair - Patient/Family Education Comment: Repeated pt and family education with pts for CVA recovery and safety - Assessment/Plan Assessment: Patient is a 57 yo male presents to [facility] acute rehab program s/p intracranial hemorrhage. PRECAUTIONS: FALLS, SAFETY, CARDIAC, SEIZURES, DIABETIC,ADVANCED BITE SIZED. Pt presents with impaired activity tolerance, impaired dynamic standing balance, impaired motor planning/FM coordination RUE, impaired ability to cross midline, diadodiskinesia and impaired safety awareness with bouts of impulsivity. Patient is doing well in therapy and is very motivated. He is progressing towards meeting his STGS/LTGS. Pt can complete transfers with CGA/ min A transferring onto R side. Pt is able to complete ub self care with supervision and requires mod/max A for lb self care. Pts R UE motor planning and coordination is improving as well . Pt's biggest barrier to progress is impulsivity , poor safety awareness and poor motor control. Reccommend continue IP OT services 5-6x/week to maximize pt's functional independence w/in his home and with completion of iadls . Reccommned caregiver training prior to d/c - Goals Timeframe: 2 weeks Goals: Mod I with toileting. Mod I with LE dressing. Mod I with feeding. Mod I with UE dressing - Provider Therapist: Kira Ramachandran OTR/L Speech Therapy - Consult Information Patient on Program: Yes Medical Diagnosis: ICH Treatment Diagnosis: mild receptive/expressive aphasia - Assessment Expressive Language Impairment: Mild Receptive Language Impairment: Mild - Plan Assessment: Patient is a 57 yo male presents to [facility] acute rehab program s/p intracranial hemorrhage. PRECAUTIONS: FALLS, SAFETY, CARDIAC, SEIZURES, DIABETIC,ADVANCED BITE SIZED. Pt presents with impaired activity tolerance, impaired dynamic standing balance, impaired motor planning/FM coordination RUE, impaired ability to cross midline, diadodiskinesia and impaired safety awareness with bouts of impulsivity. Patient is doing well in therapy and is very motivated. He is progressing towards meeting his STGS/LTGS. Pt can complete transfers with CGA/ min A transferring onto R side. Pt is able to complete ub self care with supervision and requires mod/max A for lb self care. Pts R UE motor planning and coordination is improving as well . Pt's biggest barrier to progress is impulsivity , poor safety awareness and poor motor control. Reccommend continue IP OT services 5-6x/week to maximize pt's functional independence w/in his home and with completion of iadls . Reccommned caregiver training prior to d/c - Provider Therapist: Zunilda Wells License Number: [id number] Recreational Therapy - Participation Participation: Participates in Individual and/or Group Sessions - Attendance Attendance: 3-5 times per week - Activities Leisure Activities: Cards and Games - Socialization Level of Socialization: Initiates/interacts freely with care givers and peer - Diversional Time Diversional Time: likes to play dominoes, watch television - Assessment Assessment/Plan: Patient is a 57 yo male presents to [facility] acute rehab program s/ p intracranial hemorrhage. PRECAUTIONS: FALLS, SAFETY, CARDIAC, SEIZURES, DIABETIC,ADVANCED BITE SIZED. Pt presents with impaired activity tolerance, impaired dynamic standing balance, impaired motor planning/FM coordination RUE, impaired ability to cross midline, diadodiskinesia and impaired safety awareness with bouts of impulsivity. Patient is doing well in therapy and is very motivated. He is progressing towards meeting his STGS/LTGS. Pt can complete transfers with CGA/ min A transferring onto R side. Pt is able to complete ub self care with supervision and requires mod/max A for lb self care. Pts R UE motor planning and coordination is improving as well . Pt's biggest barrier to progress is impulsivity , poor safety awareness and poor motor control. Reccommend continue IP OT services 5-6x/week to maximize pt's functional independence w/in his home and with completion of iadls . Reccommned caregiver training prior to d/c - Provider Therapist: Argelia Aguillon, [employer] #[id number] Nutrition - Current Diet Current Diet/ Supplement/ Feedings: Heart healthy moderate consistent CHO thin liquids - Appetite Percent Meal Consumed: 75-100% - Comments Comments: Care post CVA and Safety Precautions - Assessment/Goals/Time Frame Assessment/Goals/Time Frame: - Still on [employer] telesitter for safety. - Provider Provider: Adrianna Cao RD Case Management - Psychosocial Assessment Support Systems: Gideon Kalia (son)- [phone]. Irena Kalia (spouse)- [phone] Psychological Interventions/Needs: Patient is alert and oriented, with impulsivity Discharge Concerns: Patient currently requiring min-mod A for functional mobility. Patient/Family Meeting: CM met with patient and rehab team Intervention/Goal/Outcome:: 1. Goal: Intermittent supervision vs mod I. 2. Plan : Home with VNS. 3. caregiver training with spouse. 4. continued emotional support and education regarding impulsivity. 5. DME needs. 6. f/u appts. 7. continued stay auth, LAD: 03/15, updates to be faxed at that time. 8. tentative discharge date: 03/31 - Discharge Plan Discharge Plan: Home with services - Provider Provider: FADY Rojas, CR[employer] SPECIALIST License Number: [id number] Rehabilitation Plan - Treatment Plan Treatment Plan: Physical Therapy, Occupational Therapy, Speech, Dietary, Patient /Family Education - Discharge Plan Estimated Date of Discharge: 03/31/18 Discharge to: Home
--- NOTE | 2018-03-20 13:49 | CP.PCM.PN ---
Subjective - Date & Time of Evaluation Date of Evaluation: 03/20/18 Time of Evaluation: 13:48 - Subjective Subjective: Patient seen in the room with present discussed in detail the importance of safety and not being impulsive He understood and will try better set for d/c 03/31/18 continue current care Objective - Vital Signs/Intake and Output Vital Signs (last 24 hours): Temp Pulse Resp BP Pulse Ox 96.0 F L 79 20 112/63 99 03/20/18 09:00 03/20/18 09:00 03/20/18 09:00 03/20/18 09:00 03/20/18 08:00 - Medications Medications: Current Medications Acetaminophen (Tylenol 325mg Tab) 650 mg PO Q12H PRN PRN Reason: Fever >100.4 F Acetaminophen (Tylenol 325mg Tab) 650 mg PO Q8 PRN PRN Reason: headache, pain 4-7 Amlodipine Besylate (Norvasc) 10 mg PO DAILY [facility] Last Admin: 03/20/18 08:24 Dose: 10 mg Atorvastatin Calcium (Lipitor) 10 mg PO HS [facility] Last Admin: 03/19/18 21:29 Dose: 10 mg Ergocalciferol (Drisdol 50,000 Intl Units Cap) 1 cap PO FRI@2000 [facility] Last Admin: 03/16/18 22:05 Dose: 1 cap Fenofibrate (Tricor) 145 mg PO DAILY [facility] Last Admin: 03/20/18 08:23 Dose: 145 mg Folic Acid (Folic Acid) 1 mg PO DAILY [facility] Last Admin: 03/20/18 08:23 Dose: 1 mg Glipizide (Glucotrol) 5 mg PO ACB [facility] Last Admin: 03/20/18 07:34 Dose: 5 mg Guaifenesin/Dextromethorphan (Robitussin Dm) 10 ml PO Q6 PRN PRN Reason: Cough Insulin Human Lispro (Humalog) 0 units SC ACHS [facility] PRN Reason: Protocol Last Admin: 03/20/18 12:14 Dose: 3 units Metformin HCl (Glucophage) 1,000 mg PO BID [facility] Last Admin: 03/20/18 08:23 Dose: 1,000 mg Pantoprazole Sodium (Protonix Ec Tab) 40 mg PO DAILY [facility] Last Admin: 03/20/18 08:23 Dose: 40 mg Thiamine HCl (Vitamin B1 Tab) 100 mg PO DAILY [facility] Last Admin: 03/20/18 08:23 Dose: 100 mg Valsartan (Diovan) 320 mg PO DAILY [facility] Last Admin: 03/20/18 08:24 Dose: 320 mg - Labs Labs: 03/08/18 05:25 03/08/18 05:25
--- NOTE | 2018-03-20 15:18 | CP.PCM.CON ---
History of Present Illness - History of Present Illness History of Present Illness: Pt seen for supportive therapy. Pt spoke of therapy, desire for continued gains and recovery. Discussed alcohol use and commitment to recovery on discharge. Disc consequences for use and his desire for a meaningful/healthy future. Support provided plan: Continued Sup therapy Past Patient History - Infectious Disease Hx of Infectious Diseases: None - Past Medical History & Family History Past Medical History?: Yes - Past Social History Smoking Status: Heavy Smoker > 10 Cigarettes Daily Chewing Tobacco Use: No Cigar Use: No Alcohol: > 2 Drinks/Day Home Situation {Lives}: With Family - CARDIAC Hx Hypercholesterolemia: Yes Hx Hypertension: Yes - PULMONARY Hx Respiratory Disorders: No - NEUROLOGICAL Hx Neurological Disorder: No - HEENT Hx HEENT Problems: No - RENAL Hx Chronic Kidney Disease: No - ENDOCRINE/METABOLIC Hx Diabetes Mellitus Type 2: Yes - HEMATOLOGICAL/ONCOLOGICAL Hx Human Immunodeficiency Virus (HIV): No - INTEGUMENTARY Hx Dermatological Problems: No - MUSCULOSKELETAL/RHEUMATOLOGICAL Hx Falls: No - GASTROINTESTINAL Hx Gastrointestinal Disorders: No - GENITOURINARY/GYNECOLOGICAL Hx Genitourinary Disorders: No - PSYCHIATRIC Hx Psychophysiologic Disorder: No Hx Emotional Abuse: No Hx Physical Abuse: No Hx Substance Use: No - SURGICAL HISTORY Hx Surgeries: Yes Other/Comment: SHOULDER SX - ANESTHESIA Hx Anesthesia: Yes Hx Anesthesia Reactions: No Hx Malignant Hyperthermia: No Meds Allergies/Adverse Reactions: Allergies Allergy/AdvReac Type Severity Reaction Status Date / Time No Known Allergies Allergy Verified 03/07/18 21:00 - Medications Medications: Current Medications Acetaminophen (Tylenol 325mg Tab) 650 mg PO Q12H PRN PRN Reason: Fever >100.4 F Acetaminophen (Tylenol 325mg Tab) 650 mg PO Q8 PRN PRN Reason: headache, pain 4-7 Amlodipine Besylate (Norvasc) 10 mg PO DAILY [facility] Last Admin: 03/20/18 08:24 Dose: 10 mg Atorvastatin Calcium (Lipitor) 10 mg PO HS [facility] Last Admin: 03/19/18 21:29 Dose: 10 mg Ergocalciferol (Drisdol 50,000 Intl Units Cap) 1 cap PO FRI@1999 [facility] Last Admin: 03/16/18 22:05 Dose: 1 cap Fenofibrate (Tricor) 145 mg PO DAILY [facility] Last Admin: 03/20/18 08:23 Dose: 145 mg Folic Acid (Folic Acid) 1 mg PO DAILY [facility] Last Admin: 03/20/18 08:23 Dose: 1 mg Glipizide (Glucotrol) 5 mg PO ACB [facility] Last Admin: 03/20/18 07:34 Dose: 5 mg Guaifenesin/Dextromethorphan (Robitussin Dm) 10 ml PO Q6 PRN PRN Reason: Cough Insulin Human Lispro (Humalog) 0 units SC ACHS [facility] PRN Reason: Protocol Last Admin: 03/20/18 12:14 Dose: 3 units Metformin HCl (Glucophage) 1,000 mg PO BID [facility] Last Admin: 03/20/18 08:23 Dose: 1,000 mg Pantoprazole Sodium (Protonix Ec Tab) 40 mg PO DAILY [facility] Last Admin: 03/20/18 08:23 Dose: 40 mg Thiamine HCl (Vitamin B1 Tab) 100 mg PO DAILY [facility] Last Admin: 03/20/18 08:23 Dose: 100 mg Valsartan (Diovan) 320 mg PO DAILY [facility] Last Admin: 03/20/18 08:24 Dose: 320 mg Results - Vital Signs Recent Vital Signs: Last Vital Signs Temp 96.0 F L 03/20/18 09:00 Pulse 79 03/20/18 09:00 Resp 20 03/20/18 09:00 BP 112/63 03/20/18 09:00 Pulse Ox 99 03/20/18 08:00 - Labs Result Diagrams: 03/08/18 05:25 03/08/18 05:25 Labs: Laboratory Results - last 24 hr 03/19/18 03/19/18 03/19/18 11:31 16:19 21:32 POC Glucose (mg/dL) 172 H 187 H 295 H 03/20/18 06:08 POC Glucose (mg/dL) 230 H
[2018-03-21] MEDS: Insulin Lispro (humaLOG) 100 Units/ml Inj SC SCH ×4 (06:44→21:10)
[2018-03-21] MEDS: Pantoprazole 40 mg EC Tab PO SCH (08:12)
--- NOTE | 2018-03-21 17:53 | CP.PCM.PN ---
Subjective - Date & Time of Evaluation Date of Evaluation: 03/21/18 Time of Evaluation: 17:52 - Subjective Subjective: Patient seen in the room NAD ambulating 60' in therapy Strength should certainly allow him to do better but functional translation of strength is lacking continue current care Objective - Vital Signs/Intake and Output Vital Signs (last 24 hours): Temp Pulse Resp BP Pulse Ox 97.5 F L 77 18 136/75 99 03/21/18 07:42 03/21/18 07:42 03/21/18 07:42 03/21/18 08:12 03/21/18 07:42 - Medications Medications: Current Medications Acetaminophen (Tylenol 325mg Tab) 650 mg PO Q12H PRN PRN Reason: Fever >100.4 F Acetaminophen (Tylenol 325mg Tab) 650 mg PO Q8 PRN PRN Reason: headache, pain 4-7 Amlodipine Besylate (Norvasc) 10 mg PO DAILY [facility] Last Admin: 03/21/18 08:12 Dose: 10 mg Atorvastatin Calcium (Lipitor) 10 mg PO HS [facility] Last Admin: 03/20/18 22:06 Dose: 10 mg Ergocalciferol (Drisdol 50,000 Intl Units Cap) 1 cap PO FRI@2000 [facility] Last Admin: 03/16/18 22:05 Dose: 1 cap Fenofibrate (Tricor) 145 mg PO DAILY [facility] Last Admin: 03/21/18 08:11 Dose: 145 mg Folic Acid (Folic Acid) 1 mg PO DAILY [facility] Last Admin: 03/21/18 08:13 Dose: 1 mg Glipizide (Glucotrol) 5 mg PO ACB [facility] Last Admin: 03/21/18 06:44 Dose: 5 mg Guaifenesin/Dextromethorphan (Robitussin Dm) 10 ml PO Q6 PRN PRN Reason: Cough Insulin Human Lispro (Humalog) 0 units SC ACHS [facility] PRN Reason: Protocol Last Admin: 03/21/18 17:30 Dose: 3 units Metformin HCl (Glucophage) 1,000 mg PO BID [facility] Last Admin: 03/21/18 17:31 Dose: 1,000 mg Pantoprazole Sodium (Protonix Ec Tab) 40 mg PO DAILY [facility] Last Admin: 03/21/18 08:12 Dose: 40 mg Thiamine HCl (Vitamin B1 Tab) 100 mg PO DAILY [facility] Last Admin: 03/21/18 08:11 Dose: 100 mg Valsartan (Diovan) 320 mg PO DAILY [facility] Last Admin: 03/21/18 08:11 Dose: 320 mg - Labs Labs: 03/08/18 05:25 03/08/18 05:25
[2018-03-22] MEDS: Insulin Lispro (humaLOG) 100 Units/ml Inj SC SCH ×4 (06:44→21:05)
[2018-03-22] MEDS: Pantoprazole 40 mg EC Tab PO SCH (08:27)
[2018-03-23] MEDS: Insulin Lispro (humaLOG) 100 Units/ml Inj SC SCH ×4 (06:51→21:04)
[2018-03-23] MEDS: Pantoprazole 40 mg EC Tab PO SCH (08:28)
--- NOTE | 2018-03-23 14:46 | CP.PCM.PN ---
Subjective - Date & Time of Evaluation Date of Evaluation: 03/23/18 Time of Evaluation: 11:15 - Subjective Subjective: Patient seen and examined. Denied any complaint. Objective - Vital Signs/Intake and Output Vital Signs (last 24 hours): Temp Pulse Resp BP Pulse Ox 97.3 F L 72 20 125/71 100 03/23/18 07:42 03/23/18 08:28 03/23/18 07:42 03/23/18 08:28 03/23/18 07:42 - Medications Medications: Current Medications Acetaminophen (Tylenol 325mg Tab) 650 mg PO Q12H PRN PRN Reason: Fever >100.4 F Acetaminophen (Tylenol 325mg Tab) 650 mg PO Q8 PRN PRN Reason: headache, pain 4-7 Amlodipine Besylate (Norvasc) 10 mg PO DAILY [facility] Last Admin: 03/23/18 08:28 Dose: 10 mg Atorvastatin Calcium (Lipitor) 10 mg PO HS [facility] Last Admin: 03/22/18 21:06 Dose: 10 mg Ergocalciferol (Drisdol 50,000 Intl Units Cap) 1 cap PO FRI@2000 [facility] Last Admin: 03/16/18 22:05 Dose: 1 cap Fenofibrate (Tricor) 145 mg PO DAILY [facility] Last Admin: 03/23/18 08:29 Dose: 145 mg Folic Acid (Folic Acid) 1 mg PO DAILY [facility] Last Admin: 03/23/18 08:27 Dose: 1 mg Glipizide (Glucotrol) 5 mg PO BID [facility] Guaifenesin/Dextromethorphan (Robitussin Dm) 10 ml PO Q6 PRN PRN Reason: Cough Insulin Human Lispro (Humalog) 0 units SC ACHS [facility] PRN Reason: Protocol Last Admin: 03/23/18 11:30 Dose: 3 units Metformin HCl (Glucophage) 1,000 mg PO BID [facility] Last Admin: 03/23/18 08:27 Dose: 1,000 mg Pantoprazole Sodium (Protonix Ec Tab) 40 mg PO DAILY [facility] Last Admin: 03/23/18 08:28 Dose: 40 mg Thiamine HCl (Vitamin B1 Tab) 100 mg PO DAILY [facility] Last Admin: 03/23/18 08:27 Dose: 100 mg Valsartan (Diovan) 320 mg PO DAILY [facility] Last Admin: 03/23/18 10:00 Dose: 320 mg - Labs Labs: 05/24/18 05:25 03/08/18 05:25 - Constitutional Appears: No Acute Distress - Head Exam Head Exam: ATRAUMATIC - Eye Exam Eye Exam: absent: Scleral icterus - ENT Exam ENT Exam: Mucous Membranes Moist - Neck Exam Neck Exam: absent: Meningismus - Respiratory Exam Respiratory Exam: absent: Rales, Rhonchi, Wheezes, Respiratory Distress - Cardiovascular Exam Cardiovascular Exam: REGULAR RHYTHM, +S1, +S2 - GI/Abdominal Exam GI & Abdominal Exam: Soft. absent: Tenderness - Rectal Exam Rectal Exam: Deferred - Neurological Exam Neurological Exam: Alert, Oriented x3 - Psychiatric Exam Psychiatric exam: Normal Affect - Skin Skin Exam: Dry, Intact Assessment and Plan - Assessment and Plan (Free Text) Assessment: 57 yo male with history of HTN, HLD and DM2, not compliant with medications, admitted on 03/05/2018 because of right sided facial droop associated with right upper and lower extremity weakness and some confusion. CT scan of the head showed left thalamic hemorrhage with minimal edema but no midline shift. Neurosurgery was consulted and no surgical intervention was recommended. Neurology was also consulted and advised Salo. Patient was admitted in ICU but later being hemodynamically and neurologically stable he was transferred and admitted in Acute Rehab for continuation of PT. 1. Acute Left thalamic hemorrhage participated in PT and improving MRI showed stable hemorrhage physiatry consult with Dr Fields appreciated continue PT/OT/speech 2.DM2 BS elevated continue Metformin 1000mg PO BID increase Glipizide to 5 mg PO BID BMP in am 3.HTN BP stable continue Amlodipine 10 mg and Diovan 320 mg daily 4.HLD continue Atorvastatin and Fenofibrate 5. Adjustment Disorder Psychology consult appreciated 5. DVT prophylaxis venodyne boots while in bed avoid anticoagulation and anti-platelets because of intracranial bleed
--- NOTE | 2018-03-23 15:21 | CP.PCM.PN ---
Subjective - Date & Time of Evaluation Date of Evaluation: 03/23/18 Time of Evaluation: 15:21 - Subjective Subjective: Patient seen in the room motivated had appropriate extension from insurance to the which will allow for a safe d/c home making very good progress therapies quite happy continue current care Objective - Vital Signs/Intake and Output Vital Signs (last 24 hours): Temp Pulse Resp BP Pulse Ox 97.3 F L 72 20 125/71 100 03/23/18 07:42 03/23/18 08:28 03/23/18 07:42 03/23/18 08:28 03/23/18 07:42 - Medications Medications: Current Medications Acetaminophen (Tylenol 325mg Tab) 650 mg PO Q12H PRN PRN Reason: Fever >100.4 F Acetaminophen (Tylenol 325mg Tab) 650 mg PO Q8 PRN PRN Reason: headache, pain 4-7 Amlodipine Besylate (Norvasc) 10 mg PO DAILY [facility] Last Admin: 03/23/18 08:28 Dose: 10 mg Atorvastatin Calcium (Lipitor) 10 mg PO [facility] Last Admin: 03/22/18 21:06 Dose: 10 mg Ergocalciferol (Drisdol 50,000 Intl Units Cap) 1 cap PO FRI@1999 [facility] Last Admin: 03/16/18 22:05 Dose: 1 cap Fenofibrate (Tricor) 145 mg PO DAILY [facility] Last Admin: 03/23/18 08:29 Dose: 145 mg Folic Acid (Folic Acid) 1 mg PO DAILY [facility] Last Admin: 03/23/18 08:27 Dose: 1 mg Glipizide (Glucotrol) 5 mg PO BID [facility] Guaifenesin/Dextromethorphan (Robitussin Dm) 10 ml PO Q6 PRN PRN Reason: Cough Insulin Human Lispro (Humalog) 0 units SC ACHS [facility] PRN Reason: Protocol Last Admin: 03/23/18 11:30 Dose: 3 units Metformin HCl (Glucophage) 1,000 mg PO BID [facility] Last Admin: 03/23/18 08:27 Dose: 1,000 mg Pantoprazole Sodium (Protonix Ec Tab) 40 mg PO DAILY [facility] Last Admin: 03/23/18 08:28 Dose: 40 mg Thiamine HCl (Vitamin B1 Tab) 100 mg PO DAILY [facility] Last Admin: 03/23/18 08:27 Dose: 100 mg Valsartan (Diovan) 320 mg PO DAILY [facility] Last Admin: 03/23/18 10:00 Dose: 320 mg - Labs Labs: 03/08/18 05:25 03/08/18 05:25
[2018-03-23] MEDS: Ergocalciferol 50,000 Intl Units Cap PO SCH (21:03)
[2018-03-24 07:47] LABS: BLOOD UREA NITROGEN 18 mg/dl (9-20); CALCIUM 9.5 mg/dL (8.4-10.2); GFR AFRICAN-AMERICAN > 60; GFR NON-AFRICAN AMERICAN > 60
[2018-03-24] MEDS: Insulin Lispro (humaLOG) 100 Units/ml Inj SC SCH ×4 (07:51→21:13)
[2018-03-24] MEDS: Pantoprazole 40 mg EC Tab PO SCH (09:01)
[2018-03-25] MEDS: Insulin Lispro (humaLOG) 100 Units/ml Inj SC SCH ×4 (07:22→21:07)
[2018-03-25] MEDS: Pantoprazole 40 mg EC Tab PO SCH (08:49)
[2018-03-26] MEDS: Insulin Lispro (humaLOG) 100 Units/ml Inj SC SCH ×4 (07:20→21:03)
[2018-03-26] MEDS: Pantoprazole 40 mg EC Tab PO SCH (08:44)
--- NOTE | 2018-03-26 09:58 | CP.PCM.PN ---
Subjective - Date & Time of Evaluation Date of Evaluation: 03/26/18 Time of Evaluation: 09:57 - Subjective Subjective: Patient seen in PT doing stairs still with safety concerns and needed cues with sequencing. Very good acute rehab candidate and the extra time will be highly beneficial in helping with improved functional recovery and safety gains continue current care Objective - Vital Signs/Intake and Output Vital Signs (last 24 hours): Temp Pulse Resp BP Pulse Ox 96.0 F L 65 18 133/65 96 03/26/18 07:38 03/26/18 07:38 03/26/18 07:38 03/26/18 08:40 03/26/18 07:38 - Medications Medications: Current Medications Acetaminophen (Tylenol 325mg Tab) 650 mg PO Q12H PRN PRN Reason: Fever >100.4 F Acetaminophen (Tylenol 325mg Tab) 650 mg PO Q8 PRN PRN Reason: headache, pain 4-7 Amlodipine Besylate (Norvasc) 10 mg PO DAILY [facility] Last Admin: 03/26/18 08:40 Dose: 10 mg Atorvastatin Calcium (Lipitor) 10 mg PO [facility] Last Admin: 03/25/18 21:05 Dose: 10 mg Ergocalciferol (Drisdol 50,000 Intl Units Cap) 1 cap PO FRI@2000 [facility] Last Admin: 03/23/18 21:03 Dose: 1 cap Fenofibrate (Tricor) 145 mg PO DAILY [facility] Last Admin: 03/25/18 08:48 Dose: 145 mg Folic Acid (Folic Acid) 1 mg PO DAILY [facility] Last Admin: 03/26/18 08:43 Dose: 1 mg Glipizide (Glucotrol) 5 mg PO BID [facility] Last Admin: 03/26/18 08:44 Dose: 5 mg Guaifenesin/Dextromethorphan (Robitussin Dm) 10 ml PO Q6 PRN PRN Reason: Cough Insulin Human Lispro (Humalog) 0 units SC [facility] PRN Reason: Protocol Last Admin: 03/26/18 07:20 Dose: 3 units Metformin HCl (Glucophage) 1,000 mg PO BID [facility] Last Admin: 03/26/18 08:43 Dose: 1,000 mg Pantoprazole Sodium (Protonix Ec Tab) 40 mg PO DAILY [facility] Last Admin: 03/26/18 08:44 Dose: 40 mg Thiamine HCl (Vitamin B1 Tab) 100 mg PO DAILY [facility] Last Admin: 03/26/18 08:43 Dose: 100 mg Valsartan (Diovan) 320 mg PO DAILY [facility] Last Admin: 03/26/18 08:43 Dose: 320 mg - Labs Labs: 03/08/18 05:25 03/24/18 05:20
--- NOTE | 2018-03-26 16:54 | CP.PCM.PN ---
Subjective - Date & Time of Evaluation Date of Evaluation: 03/26/18 Time of Evaluation: 11:00 - Subjective Subjective: Patient seen and examined. Denied any complaint. Objective - Vital Signs/Intake and Output Vital Signs (last 24 hours): Temp Pulse Resp BP Pulse Ox 96.0 F L 65 18 133/65 96 03/26/18 07:38 03/26/18 07:38 03/26/18 07:38 03/26/18 08:40 03/26/18 07:38 - Medications Medications: Current Medications Acetaminophen (Tylenol 325mg Tab) 650 mg PO Q12H PRN PRN Reason: Fever >100.4 F Acetaminophen (Tylenol 325mg Tab) 650 mg PO Q8 PRN PRN Reason: headache, pain 4-7 Amlodipine Besylate (Norvasc) 10 mg PO DAILY [facility] Last Admin: 03/26/18 08:40 Dose: 10 mg Atorvastatin Calcium (Lipitor) 10 mg PO HS [facility] Last Admin: 03/25/18 21:05 Dose: 10 mg Ergocalciferol (Drisdol 50,000 Intl Units Cap) 1 cap PO FRI@1999 [facility] Last Admin: 03/23/18 21:03 Dose: 1 cap Fenofibrate (Tricor) 145 mg PO DAILY [facility] Last Admin: 03/26/18 08:34 Dose: 145 mg Folic Acid (Folic Acid) 1 mg PO DAILY [facility] Last Admin: 03/26/18 08:43 Dose: 1 mg Glipizide (Glucotrol) 5 mg PO BID [facility] Last Admin: 03/26/18 08:44 Dose: 5 mg Guaifenesin/Dextromethorphan (Robitussin Dm) 10 ml PO Q6 PRN PRN Reason: Cough Insulin Human Lispro (Humalog) 0 units SC ACHS [facility] PRN Reason: Protocol Last Admin: 03/26/18 12:35 Dose: 2 units Metformin HCl (Glucophage) 1,000 mg PO BID [facility] Last Admin: 03/26/18 08:43 Dose: 1,000 mg Pantoprazole Sodium (Protonix Ec Tab) 40 mg PO DAILY [facility] Last Admin: 03/26/18 08:44 Dose: 40 mg Thiamine HCl (Vitamin B1 Tab) 100 mg PO DAILY [facility] Last Admin: 03/26/18 08:43 Dose: 100 mg Valsartan (Diovan) 320 mg PO DAILY [facility] Last Admin: 03/26/18 08:43 Dose: 320 mg - Labs Labs: 03/08/18 05:25 03/24/18 05:20 - Constitutional Appears: No Acute Distress - Head Exam Head Exam: ATRAUMATIC - Eye Exam Eye Exam: absent: Scleral icterus - ENT Exam ENT Exam: Mucous Membranes Moist - Neck Exam Neck Exam: absent: Meningismus - Respiratory Exam Respiratory Exam: absent: Rales, Rhonchi, Wheezes, Respiratory Distress - Cardiovascular Exam Cardiovascular Exam: REGULAR RHYTHM, +S1, +S2 - GI/Abdominal Exam GI & Abdominal Exam: Soft. absent: Tenderness - Rectal Exam Rectal Exam: Deferred - Extremities Exam Extremities Exam: absent: Calf Tenderness, Pedal Edema - Neurological Exam Neurological Exam: Alert, Oriented x3 - Psychiatric Exam Psychiatric exam: Normal Affect - Skin Skin Exam: Dry, Intact Assessment and Plan - Assessment and Plan (Free Text) Assessment: 57 yo male with history of HTN, HLD and DM2, not compliant with medications, admitted on 03/05/2018 because of right sided facial droop associated with right upper and lower extremity weakness and some confusion. CT scan of the head showed left thalamic hemorrhage with minimal edema but no midline shift. Neurosurgery was consulted and no surgical intervention was recommended. Neurology was also consulted and advised Salo. Patient was admitted in ICU. Later being hemodynamically and neurologically stable he was transferred and admitted in Acute Rehab for continuation of PT. 1. Acute Left thalamic hemorrhage tolerating PT and improving MRI showed stable hemorrhage physiatry consult with Dr Fields appreciated continue PT/OT/speech therapy 2.DM2 BS uncontrolled continue Metformin 1000mg PO BID increase Glipizide to 5 mg PO BID BMP in am 3.HTN BP stable continue Amlodipine 10 mg and Diovan 320 mg daily 4.HLD continue Atorvastatin and Fenofibrate 5. Adjustment Disorder Psychology consult appreciated 5. DVT prophylaxis venodyne boots while in bed avoid anticoagulation and anti-platelets because of intracranial bleed
[2018-03-27 06:19] LABS: BLOOD UREA NITROGEN 15 mg/dl (9-20); CALCIUM 9.1 mg/dL (8.4-10.2); GFR AFRICAN-AMERICAN > 60; GFR NON-AFRICAN AMERICAN > 60
[2018-03-27] MEDS: Insulin Lispro (humaLOG) 100 Units/ml Inj SC SCH ×4 (07:32→22:06)
[2018-03-27] MEDS: Pantoprazole 40 mg EC Tab PO SCH (08:49)
--- NOTE | 2018-03-27 13:16 | PSY.TMCNF ---
Nursing - Vital Signs Vital Signs (Last 8 hours): Vital Signs 03/27/18 03/27/18 03/27/18 07:46 08:49 11:52 Temperature 97.5 F L 97.5 F L Pulse Rate 69 69 69 Respiratory 20 20 Rate Blood Pressure 115/73 123/70 123/70 O2 Sat by Pulse 95 Oximetry Pain: 0 - Precautions: Precautions: Fall Prevention, Seizure - Medications/Other Issues Comment: On AVASYS for safety impulsive - Consults Comment: DR Fields,DR Alexis - Toileting Toileting: Moderate Assistance - Bladder Management Bladder Pattern: Normal Voiding Method: Toilet, Urinal Bladder Management: Supervision Frequency of Accidents: 0 - Bowel Management Bowel Pattern: Normal Bowel Management: Contact Guard - Transfers Transfers: Contact Guard - ADL's ADL's: Minimal Assistance - Pain Management Comments: on tylenol for pain - Patient/Family Teaching Comments: safety/fall precaution post cva care medication teachings - Goals/Time Frame Comments: as per multidiciplinary paln of care - Provider Provider: [facility] - Bed Mobility Bed Mobility: Modified Independent, Verbal Cues - Transfers Wheelchair to Mat: Contact Guard Sit to Stand: Supervision, Verbal Cues, Contact Guard - Ambulation Level of Assistance: Contact Guard, Minimal Assistance Distance (ft.): 140 Assistive Devices: Wide base quad cane - Stair Negotiation Stairs: Level of Assistance: Contact Guard, Minimal Assistance Number of Stairs: 12 Stairs: Assistive Devices: Left Handrail, Wide base quad cane - Standing Balance Static Stand: Contact Guard Assist Dynamic Stand: Minimal Assistance - Pain Management Techniques: Position Change - Insight/Carryover Insight/Carryover: Good - Patient/Family Education Comment: CVA recovery, safety - Assessment/Plan Assessment: Patient is a 57 yo male presents to [facility] acute rehab program s/p intracranial hemorrhage. PRECAUTIONS: FALLS, SAFETY, CARDIAC, SEIZURES, DIABETIC,ADVANCED BITE SIZED. Pt presents with impaired activity tolerance, impaired dynamic standing balance, impaired motor planning/FM coordination RUE, impaired ability to cross midline, diadodiskinesia and impaired safety awareness with bouts of impulsivity. Patient is doing well in therapy and is very motivated. He has met his STGS. Pt can complete transfers with supervision with intermittent cga due to impulsivity. Pt is able to complete ub self care with supervision and requires supervision/intermittent cga for lb self care. Pts R UE motor planning and coordination is improving as well as evidenced by improved score on 9 hole peg test. . Pt's biggest barrier to progress is impulsivity. DME ordered ,recieved and adjuste to pt's height. Caregiver training with pt's . Reccommend continue IP OT services 5-6x/ week to maximize pt's functional independence w/in his home and with completion of iadls . Reccommned 08/05 supervision at home and assist with iadls - Goals Timeframe: 1 week Goals: Mod I with toileting. Mod I with LE dressing. Mod I with feeding. Mod I with UE dressing - Provider License Number: [id number] Occupational Therapy - Arousal/Attention/Orientation Level of Consciousness: Awake, Alert Patient Orientation: Person, Place, Time, Appropriate to Age, Appropriate to Situation Assessment Comment: +impulsivity - ADL/IADL Self Feeding: Set-up Help Grooming: Set-up Help Bathing-Upper Extremity: Supervision, Verbal Cues Bathing-Lower Extremity: Verbal Cues, Set-up Help, Contact Guard Dressing-Upper Extremity: Set-up Help Dressing-Lower Extremity: Supervision, Verbal Cues - Sitting Balance Static Sitting: Supervision Dynamic Sitting: Reaches across midline, Requires supervision - Transfers Wheelchair to Bed Transfers: Supervision Toilet Transfers: Supervision Tub Transfers: Supervision, Contact Guard Comment: poor motor planning - Wheelchair Management Level of Assistance: Supervision, Verbal Cues, Minimal Assistance - Upper Extremity Status Right Upper Extremity Comment: 5/5 Left Upper Extremity Comment: 4+/5 - Pain Alleviating Techniques: Position Change - Insight/Carryover Insight/Carryover: Good - Patient/Family Education Comment: CVA recovery, safety - Assessment/Plan Assessment: Patient is a 57 yo male presents to [facility] acute rehab program s/p intracranial hemorrhage. PRECAUTIONS: FALLS, SAFETY, CARDIAC, SEIZURES, DIABETIC,ADVANCED BITE SIZED. Pt presents with impaired activity tolerance, impaired dynamic standing balance, impaired motor planning/FM coordination RUE, impaired ability to cross midline, diadodiskinesia and impaired safety awareness with bouts of impulsivity. Patient is doing well in therapy and is very motivated. He has met his STGS. Pt can complete transfers with supervision with intermittent cga due to impulsivity. Pt is able to complete ub self care with supervision and requires supervision/intermittent cga for lb self care. Pts R UE motor planning and coordination is improving as well as evidenced by improved score on 9 hole peg test. . Pt's biggest barrier to progress is impulsivity. DME ordered ,recieved and adjuste to pt's height. Caregiver training with pt's . Reccommend continue IP OT services 5-6x/ week to maximize pt's functional independence w/in his home and with completion of iadls . Reccommned 24/7 supervision at home and assist with iadls - Goals Timeframe: 1 week Goals: Mod I with toileting. Mod I with LE dressing. Mod I with feeding. Mod I with UE dressing - Provider Therapist: ASTON Pope/[facility] Speech Therapy - Consult Information Patient on Program: Yes Medical Diagnosis: ICH Treatment Diagnosis: mild receptive/expressive aphasia - Assessment Expressive Language Impairment: Mild Receptive Language Impairment: Mild - Plan Assessment: Patient is a 57 yo male presents to [facility] acute rehab program s/p intracranial hemorrhage. PRECAUTIONS: FALLS, SAFETY, CARDIAC, SEIZURES, DIABETIC,ADVANCED BITE SIZED. Pt presents with impaired activity tolerance, impaired dynamic standing balance, impaired motor planning/FM coordination RUE, impaired ability to cross midline, diadodiskinesia and impaired safety awareness with bouts of impulsivity. Patient is doing well in therapy and is very motivated. He has met his STGS. Pt can complete transfers with supervision with intermittent cga due to impulsivity. Pt is able to complete ub self care with supervision and requires supervision/intermittent cga for lb self care. Pts R UE motor planning and coordination is improving as well as evidenced by improved score on 9 hole peg test. . Pt's biggest barrier to progress is impulsivity. DME ordered ,recieved and adjuste to pt's height. Caregiver training with pt's . Reccommend continue IP OT services 5-6x/ week to maximize pt's functional independence w/in his home and with completion of iadls . Reccommned 24/7 supervision at home and assist with iadls - Provider Therapist: Zunilda Wells License Number: [id number] Recreational Therapy - Participation Participation: Participates in Individual and/or Group Sessions - Attendance Attendance: 3-5 times per week - Activities Leisure Activities: Cards and Games - Socialization Level of Socialization: Initiates/interacts freely with care givers and peer - Diversional Time Diversional Time: enjoys playing dominoes, watch television - Assessment Assessment/Plan: Patient is a 57 yo male presents to [facility] acute rehab program s/ p intracranial hemorrhage. PRECAUTIONS: FALLS, SAFETY, CARDIAC, SEIZURES, DIABETIC,ADVANCED BITE SIZED. Pt presents with impaired activity tolerance, impaired dynamic standing balance, impaired motor planning/FM coordination RUE, impaired ability to cross midline, diadodiskinesia and impaired safety awareness with bouts of impulsivity. Patient is doing well in therapy and is very motivated. He has met his STGS. Pt can complete transfers with supervision with intermittent cga due to impulsivity. Pt is able to complete ub self care with supervision and requires supervision/intermittent cga for lb self care. Pts R UE motor planning and coordination is improving as well as evidenced by improved score on 9 hole peg test. . Pt's biggest barrier to progress is impulsivity. DME ordered ,recieved and adjuste to pt's height. Caregiver training with pt's . Reccommend continue IP OT services 5-6x/ week to maximize pt's functional independence w/in his home and with completion of iadls . Reccommned 08/05 supervision at home and assist with iadls - Provider Therapist: Argelia Aguillon, DATA CONTROL CLERK [employer]PERVISOR #[id number] Nutrition - Current Diet Current Diet/ Supplement/ Feedings: Moderate cosistent CHO heart healthy thin liquids - Appetite Percent Meal Consumed: 75-100% - Comments Comments: safety/fall precaution post cva care medication teachings - Assessment/Goals/Time Frame Assessment/Goals/Time Frame: On AVASYS for safety impulsive - Provider Provider: Adrianna Cao RD Case Management - Psychosocial Assessment Support Systems: Gideon Kalia (son)- [phone]. Irena Motta (spouse)- [phone] Psychological Interventions/Needs: Patient is alert and oriented, with impulsivity Discharge Concerns: Patient currently requiring min-mod A for functional mobility. Patient/Family Meeting: CM met with patient and rehab team Intervention/Goal/Outcome:: 1. Goal: Intermittent supervision vs mod I. 2. Plan : Home with VNS. 3. caregiver training with spouse. 4. continued emotional support and education regarding impulsivity. 5. DME needs. 6. f/u appts. 7. continued stay auth, LAD: 03/15, updates to be faxed at that time. 8. tentative discharge date: 03/31 - Discharge Plan Discharge Plan: Home with services - Provider Provider: FADY Rojas LSW License Number: [id number] Rehabilitation Plan - Treatment Plan Treatment Plan: Physical Therapy, Occupational Therapy, Speech, Dietary, Patient /Family Education - Discharge Plan Estimated Date of Discharge: 03/31/18 Discharge to: Home
--- NOTE | 2018-03-27 13:59 | CP.PCM.PN ---
Subjective - Date & Time of Evaluation Date of Evaluation: 03/27/18 Time of Evaluation: 13:58 - Subjective Subjective: Patient seen in the room denies sob/cP doing ok aware of deficit in particular balance and safety is being reinforced family training has been done prior to the expected 10/31/17 d/c he continues to be an excellent acute rehab candidate Objective - Vital Signs/Intake and Output Vital Signs (last 24 hours): Temp Pulse Resp BP Pulse Ox 97.5 F L 69 20 123/70 95 03/27/18 11:52 03/27/18 11:52 03/27/18 11:52 03/27/18 11:52 03/27/18 07:46 - Medications Medications: Current Medications Acetaminophen (Tylenol 325mg Tab) 650 mg PO Q12H PRN PRN Reason: Fever >100.4 F Acetaminophen (Tylenol 325mg Tab) 650 mg PO Q8 PRN PRN Reason: headache, pain 4-7 Amlodipine Besylate (Norvasc) 10 mg PO DAILY [facility] Last Admin: 03/27/18 08:49 Dose: 10 mg Atorvastatin Calcium (Lipitor) 10 mg PO HS [facility] Last Admin: 03/26/18 21:02 Dose: 10 mg Ergocalciferol (Drisdol 50,000 Intl Units Cap) 1 cap PO FRI@2000 [facility] Last Admin: 03/23/18 21:03 Dose: 1 cap Fenofibrate (Tricor) 145 mg PO DAILY [facility] Last Admin: 03/27/18 08:49 Dose: 145 mg Folic Acid (Folic Acid) 1 mg PO DAILY [facility] Last Admin: 03/27/18 08:52 Dose: 1 mg Glipizide (Glucotrol) 7.5 mg PO BID [facility] Last Admin: 03/27/18 08:53 Dose: 7.5 mg Guaifenesin/Dextromethorphan (Robitussin Dm) 10 ml PO Q6 PRN PRN Reason: Cough Insulin Human Lispro (Humalog) 0 units [facility] PRN Reason: Protocol Last Admin: 03/27/18 12:25 Dose: 2 units Metformin HCl (Glucophage) 1,000 mg PO BID [facility] Last Admin: 03/27/18 08:48 Dose: 1,000 mg Pantoprazole Sodium (Protonix Ec Tab) 40 mg PO DAILY [facility] Last Admin: 03/27/18 08:49 Dose: 40 mg Thiamine HCl (Vitamin B1 Tab) 100 mg PO DAILY [facility] Last Admin: 03/27/18 08:48 Dose: 100 mg Valsartan (Diovan) 320 mg PO DAILY [facility] Last Admin: 03/27/18 08:48 Dose: 320 mg - Labs Labs: 03/08/18 05:25 03/27/18 05:20
[2018-03-28] MEDS: Insulin Lispro (humaLOG) 100 Units/ml Inj SC SCH ×4 (07:29→21:25)
[2018-03-28] MEDS: Pantoprazole 40 mg EC Tab PO SCH (08:51)
--- NOTE | 2018-03-28 10:43 | CP.PCM.PN ---
Subjective - Date & Time of Evaluation Date of Evaluation: 03/28/18 Time of Evaluation: 10:00 - Subjective Subjective: Patient seen and examined. Denied any complaint. Objective - Vital Signs/Intake and Output Vital Signs (last 24 hours): Temp Pulse Resp BP Pulse Ox 97.3 F L 81 20 127/65 96 03/28/18 07:34 03/28/18 09:07 03/28/18 07:34 03/28/18 08:51 03/28/18 07:34 - Medications Medications: Current Medications Acetaminophen (Tylenol 325mg Tab) 650 mg PO Q12H PRN PRN Reason: Fever >100.4 F Acetaminophen (Tylenol 325mg Tab) 650 mg PO Q8 PRN PRN Reason: headache, pain 4-7 Amlodipine Besylate (Norvasc) 10 mg PO DAILY [facility] Last Admin: 03/28/18 08:51 Dose: 10 mg Atorvastatin Calcium (Lipitor) 10 mg PO HS [facility] Last Admin: 03/27/18 22:05 Dose: 10 mg Ergocalciferol (Drisdol 50,000 Intl Units Cap) 1 cap PO FRI@2000 [facility] Last Admin: 03/23/18 21:03 Dose: 1 cap Fenofibrate (Tricor) 145 mg PO DAILY [facility] Last Admin: 03/28/18 08:50 Dose: 145 mg Folic Acid (Folic Acid) 1 mg PO DAILY [facility] Last Admin: 03/28/18 08:51 Dose: 1 mg Glipizide (Glucotrol) 7.5 mg PO BID [facility] Last Admin: 03/28/18 08:51 Dose: 7.5 mg Guaifenesin/Dextromethorphan (Robitussin Dm) 10 ml PO Q6 PRN PRN Reason: Cough Insulin Human Lispro (Humalog) 0 units SC ACHS [facility] PRN Reason: Protocol Last Admin: 03/28/18 07:29 Dose: 6 units Metformin HCl (Glucophage) 1,000 mg PO BID [facility] Last Admin: 03/28/18 08:51 Dose: 1,000 mg Pantoprazole Sodium (Protonix Ec Tab) 40 mg PO DAILY [facility] Last Admin: 03/28/18 08:51 Dose: 40 mg Thiamine HCl (Vitamin B1 Tab) 100 mg PO DAILY [facility] Last Admin: 03/28/18 08:51 Dose: 100 mg Valsartan (Diovan) 320 mg PO DAILY [facility] Last Admin: 03/28/18 08:50 Dose: 320 mg - Labs Labs: 03/08/18 05:25 03/27/18 05:20 - Constitutional Appears: No Acute Distress - Head Exam Head Exam: ATRAUMATIC - Eye Exam Eye Exam: absent: Scleral icterus - ENT Exam ENT Exam: Mucous Membranes Moist - Neck Exam Neck Exam: absent: Meningismus - Respiratory Exam Respiratory Exam: absent: Rales, Rhonchi, Wheezes, Respiratory Distress - Cardiovascular Exam Cardiovascular Exam: REGULAR RHYTHM, +S1, +S2 - GI/Abdominal Exam GI & Abdominal Exam: Soft. absent: Tenderness - Rectal Exam Rectal Exam: Deferred - Back Exam Back Exam: NORMAL INSPECTION - Neurological Exam Neurological Exam: Alert, Oriented x3 - Psychiatric Exam Psychiatric exam: Normal Affect - Skin Skin Exam: Dry, Intact Assessment and Plan - Assessment and Plan (Free Text) Assessment: 57 yo male with history of HTN, HLD and DM2, not compliant with medications, admitted on 03/05/2018 because of right sided facial droop associated with right upper and lower extremity weakness and some confusion. CT scan of the head showed left thalamic hemorrhage with minimal edema but no midline shift. Neurosurgery was consulted and no surgical intervention was recommended. Neurology was also consulted and advised Salo. Patient was admitted in ICU. Later being hemodynamically and neurologically stable he was transferred and admitted in Acute Rehab for continuation of PT. 1. Acute Left thalamic hemorrhage MRI showed stable hemorrhage Dr Fields on consult continue PT/OT/speech therapy 2.DM2 BS uncontrolled continue Metformin 1000mg PO BID increase Glipizide to 7.5mg PO BID 3.HTN BP stable continue Amlodipine 10 mg and Diovan 320 mg daily 4.HLD continue Atorvastatin and Fenofibrate 5. Adjustment Disorder Psychology consult appreciated 5. DVT prophylaxis venodyne boots while in bed avoid anticoagulation and anti-platelets because of intracranial bleed
[2018-03-29] MEDS: Insulin Lispro (humaLOG) 100 Units/ml Inj SC SCH ×4 (06:52→21:32)
[2018-03-29] MEDS: Pantoprazole 40 mg EC Tab PO SCH (08:48)
[2018-03-30 00:02] VITALS: RESP 20
[2018-03-30] MEDS: Insulin Lispro (humaLOG) 100 Units/ml Inj SC SCH ×4 (07:36→21:00)
[2018-03-30] MEDS: Pantoprazole 40 mg EC Tab PO SCH (08:03)
--- NOTE | 2018-03-30 12:45 | CP.PCM.PN ---
Subjective - Date & Time of Evaluation Date of Evaluation: 03/30/18 Time of Evaluation: 12:30 - Subjective Subjective: Patient was seen and examined today. OOB to chair. States he feels well and denies any other complaints today. Objective - Vital Signs/Intake and Output Vital Signs (last 24 hours): Temp Pulse Resp BP Pulse Ox 98.1 F 78 20 130/74 96 03/30/18 08:00 03/30/18 08:03 03/30/18 08:00 03/30/18 08:03 03/30/18 08:00 - Medications Medications: Current Medications Acetaminophen (Tylenol 325mg Tab) 650 mg PO Q12H PRN PRN Reason: Fever >100.4 F Acetaminophen (Tylenol 325mg Tab) 650 mg PO Q8 PRN PRN Reason: headache, pain 4-7 Amlodipine Besylate (Norvasc) 10 mg PO DAILY [facility] Last Admin: 03/30/18 08:03 Dose: 10 mg Atorvastatin Calcium (Lipitor) 10 mg PO HS [facility] Last Admin: 03/29/18 21:32 Dose: 10 mg Ergocalciferol (Drisdol 50,000 Intl Units Cap) 1 cap PO FRI@2000 [facility] Last Admin: 03/23/18 21:03 Dose: 1 cap Fenofibrate (Tricor) 145 mg PO DAILY [facility] Last Admin: 03/30/18 08:04 Dose: 145 mg Folic Acid (Folic Acid) 1 mg PO DAILY [facility] Last Admin: 03/30/18 08:02 Dose: 1 mg Glipizide (Glucotrol) 7.5 mg PO BID [facility] Last Admin: 03/30/18 08:04 Dose: 7.5 mg Guaifenesin/Dextromethorphan (Robitussin Dm) 10 ml PO Q6 PRN PRN Reason: Cough Insulin Human Lispro (Humalog) 0 units SC ACHS [facility] PRN Reason: Protocol Last Admin: 03/30/18 12:10 Dose: 3 units Metformin HCl (Glucophage) 1,000 mg PO BID [facility] Last Admin: 03/30/18 08:04 Dose: 1,000 mg Pantoprazole Sodium (Protonix Ec Tab) 40 mg PO DAILY [facility] Last Admin: 03/30/18 08:03 Dose: 40 mg Thiamine HCl (Vitamin B1 Tab) 100 mg PO DAILY [facility] Last Admin: 03/30/18 08:05 Dose: 100 mg Valsartan (Diovan) 320 mg PO DAILY [facility] Last Admin: 03/30/18 08:02 Dose: 320 mg - Labs Labs: 03/08/18 05:25 03/27/18 05:20 - Additional Findings Additional findings: Physical exam: Constitutional- cooperative, awake, alert Head- NCAT, PERRL Eye- PERRL, EOMI ENT- normal exam, MMM. Neck- normal inspection, supple, no JVD Respiratory- CTAB, no wheezes rales rhonchi Cardiovascular- RRR, +S1, +S2 no MRG GI/Abdominal- normal bowel sounds, soft, no mass, no hsm Skin- warm, dry Extremities Exam- normal capillary refill, normal inspection Neurological Exam- alert, awake, oriented Psych- normal mood, normal affect Assessment and Plan - Assessment and Plan (Free Text) Plan: 57 yo male with history of HTN, HLD and DM2, not compliant with medications, admitted on 03/05/2018 because of right sided facial droop associated with right upper and lower extremity weakness and some confusion. CT scan of the head showed left thalamic hemorrhage with minimal edema but no midline shift. Neurosurgery was consulted and no surgical intervention was recommended. Neurology was also consulted and advised Salo. Patient was admitted in ICU. Later being hemodynamically and neurologically stable he was transferred and admitted in Acute Rehab for continuation of PT. 1. Acute Left thalamic hemorrhage MRI showed stable hemorrhage Dr Fields on consult continue PT/OT/speech therapy 2.DM2 BS uncontrolled continue Metformin 1000mg PO BID increased Glipizide to 7.5mg PO BID 3.HTN BP stable continue Amlodipine 10 mg and Diovan 320 mg daily 4.HLD continue Atorvastatin and Fenofibrate 5. Adjustment Disorder Psychology consult appreciated 5. DVT prophylaxis venodyne boots while in bed avoid anticoagulation and anti-platelets because of intracranial bleed
--- NOTE | 2018-03-30 15:44 | CP.PCM.PN ---
Subjective - Date & Time of Evaluation Date of Evaluation: 03/30/18 Time of Evaluation: 15:43 - Subjective Subjective: Patient is doing well set for d/c tomorrow has made excellent gains to this point No sob/cp or fever family training completed Objective - Vital Signs/Intake and Output Vital Signs (last 24 hours): Temp Pulse Resp BP Pulse Ox 98.1 F 78 20 130/74 96 03/30/18 08:00 03/30/18 08:03 03/30/18 08:00 03/30/18 08:03 03/30/18 08:00 - Medications Medications: Current Medications Acetaminophen (Tylenol 325mg Tab) 650 mg PO Q12H PRN PRN Reason: Fever >100.4 F Acetaminophen (Tylenol 325mg Tab) 650 mg PO Q8 PRN PRN Reason: headache, pain 4-7 Amlodipine Besylate (Norvasc) 10 mg PO DAILY [facility] Last Admin: 03/30/18 08:03 Dose: 10 mg Atorvastatin Calcium (Lipitor) 10 mg PO HS [facility] Last Admin: 03/29/18 21:32 Dose: 10 mg Ergocalciferol (Drisdol 50,000 Intl Units Cap) 1 cap PO FRI@2000 [facility] Last Admin: 03/23/18 21:03 Dose: 1 cap Fenofibrate (Tricor) 145 mg PO DAILY [facility] Last Admin: 03/30/18 08:04 Dose: 145 mg Folic Acid (Folic Acid) 1 mg PO DAILY [facility] Last Admin: 03/30/18 08:02 Dose: 1 mg Glipizide (Glucotrol) 7.5 mg PO BID [facility] Last Admin: 03/30/18 08:04 Dose: 7.5 mg Guaifenesin/Dextromethorphan (Robitussin Dm) 10 ml PO Q6 PRN PRN Reason: Cough Insulin Human Lispro (Humalog) 0 units SC ACHS [facility] PRN Reason: Protocol Last Admin: 03/30/18 12:10 Dose: 3 units Metformin HCl (Glucophage) 1,000 mg PO BID [facility] Last Admin: 03/30/18 08:04 Dose: 1,000 mg Pantoprazole Sodium (Protonix Ec Tab) 40 mg PO DAILY [facility] Last Admin: 03/30/18 08:03 Dose: 40 mg Thiamine HCl (Vitamin B1 Tab) 100 mg PO DAILY [facility] Last Admin: 03/30/18 08:05 Dose: 100 mg Valsartan (Diovan) 320 mg PO DAILY [facility] Last Admin: 03/30/18 08:02 Dose: 320 mg - Labs Labs: 03/08/18 05:25 03/27/18 05:20
[2018-03-30] MEDS: Ergocalciferol 50,000 Intl Units Cap PO SCH (20:48)
[2018-03-31] MEDS: Insulin Lispro (humaLOG) 100 Units/ml Inj SC SCH ×2 (06:55→12:08)
[2018-03-31] MEDS: Pantoprazole 40 mg EC Tab PO SCH (08:31)
[2018-03-31 08:42] VITALS: BP 123/75; PULSE 83; TEMP 98.2; O2SAT 98
--- NOTE | 2018-03-31 11:19 | CP.PCM.DIS ---
Provider - Provider Date of Admission: 03/07/18 21:05 Attending physician: Reg Leong DO Primary care physician: PMD: Dr. Leobardo Ravi Consults: Psychology- Dr. Alexis Physiatry- Dr. Fields Neurology- Dr. Schulz Time Spent in preparation of Discharge (in minutes): 25 Hospital Course - Lab Results Lab Results: Most Recent Lab Values WBC 6.9 K/uL (4.8-10.8) 03/08/18 05:25 RBC 4.98 Mil/uL (4.40-5.90) 03/08/18 05:25 Hgb 14.2 g/dL (12.0-18.0) 03/08/18 05:25 Hct 41.8 % (35.0-51.0) 03/08/18 05:25 MCV 84.1 fl (80.0-94.0) 03/08/18 05:25 MCH 28.4 pg (27.0-31.0) 03/08/18 05:25 MCHC 33.8 g/dL (33.0-37.0) 03/08/18 05:25 RDW 12.8 % (11.5-14.5) 03/08/18 05:25 Plt Count 213 K/uL (130-400) 03/08/18 05:25 Sodium 139 mmol/l (132-148) 03/27/18 05:20 Potassium 4.1 MMOL/L (3.6-5.0) 03/27/18 05:20 Chloride 103 mmol/L (98-107) 03/27/18 05:20 Carbon Dioxide 26 mmol/L (22-30) 03/27/18 05:20 Anion Gap 14 (10-20) 03/27/18 05:20 BUN 15 mg/dl (9-20) 03/27/18 05:20 Creatinine 0.8 mg/dl (0.8-1.5) 03/27/18 05:20 Est GFR ( Amer) > 60 03/27/18 05:20 Est GFR (Non-Af Amer) > 60 03/27/18 05:20 POC Glucose (mg/dL) 215 mg/dL (65-110) H 03/31/18 06:52 Random Glucose 248 mg/dL (75-110) H 03/27/18 05:20 Calcium 9.1 mg/dL (8.4-10.2) 03/27/18 05:20 - Hospital Course Hospital Course: 57 yo male with history of HTN, HLD and DM2, not compliant with medications, admitted on 03/05/2018 because of right sided facial droop associated with right upper and lower extremity weakness and some confusion. CT scan of the head showed left thalamic hemorrhage with minimal edema but no midline shift. Neurosurgery was consulted and no surgical intervention was recommended. Neurology was also consulted and advised Salo. Patient was admitted in ICU. Later being hemodynamically and neurologically stable he was transferred and admitted in Acute Rehab for continuation of PT/OT/ST. In rehab, he tolerated therapies well with good improvement. He is now being discharged to home 1. Acute Left thalamic hemorrhage MRI showed stable hemorrhage Dr Fields on consult continue PT/OT/speech therapy outpt 2.DM2 continue Metformin 1000mg PO BID continue Glipizide to 7.5mg PO BID 3.HTN BP stable continue Amlodipine 10 mg and Diovan 320 mg daily as outpatient 4.HLD continue Atorvastatin and Fenofibrate 5. Adjustment Disorder Psychology consult appreciated 5. DVT prophylaxis venodyne boots while in bed avoided anticoagulation and anti-platelets because of intracranial bleed Discharge Exam - Head Exam Head Exam: ATRAUMATIC - Additional Findings Additional findings: Physical exam: Constitutional- cooperative, awake, alert Head- NCAT, PERRL Eye- PERRL, EOMI ENT- normal exam, MMM. Neck- normal inspection, supple, no JVD Respiratory- CTAB, no wheezes rales rhonchi Cardiovascular- RRR, +S1, +S2 no MRG GI/Abdominal- normal bowel sounds, soft, no mass, no hsm Skin- warm, dry Extremities Exam- normal capillary refill, normal inspection Neurological Exam- alert, awake, oriented Psych- normal mood, normal affect Discharge Plan - Discharge Medications Prescriptions: amLODIPine [Norvasc] 10 mg PO DAILY #30 tab Amlodipine/Valsartan [Amlodipine-Valsartan 10-320 mg] 1 tab PO DAILY #30 tablet Atorvastatin [Lipitor] 10 mg PO DAILY #30 tab Ergocalciferol (Vitamin D2) [Vitamin D2] 50,000 unit PO QWK #7 capsule Fenofibrate [Triglide] 145 mg PO DAILY #30 tab Folic Acid 1 mg PO DAILY #30 tab GlipiZIDE [Glucotrol] 7.5 mg PO BID #60 tab MetFORMIN [glucoPHAGE] 1,000 mg PO BID #60 tab Pantoprazole [Protonix Susp] 40 mg PO DAILY #30 packet Thiamine [Vitamin B1 Tab] 100 mg PO DAILY #30 tab Valsartan [Diovan] 320 mg PO DAILY #30 tab - Follow Up Plan Condition: GOOD Disposition: HOME/ ROUTINE Instructions: Intracerebral Hemorrhage, Amlodipine, Glipizide and Metformin, Metformin, General (DC), Fenofibrate and Derivatives, Valsartan Additional Instructions: 03/31/2018 10:00 am patient discharge to home on Supervision level, contact guard on ambulation using assistive device cane . patient emphasized on safety , prevention of fall at home, following Diet and home medications regimen . Referrals: Leobardo Ravi MD [Family Provider] - Cachorro Schulz MD [Medical Doctor] -
== END 2018-03-31 13:30 | disposition home health service (06) | DRG 57 ==
PROVIDERS: ADMIT Internal Medicine; ATTEND Internal Medicine
PROC: F07Z9FZ Gait Training/Functional Ambulation Treatment using Assistive, Adaptive, Supportive or Protective Equipment (ICD-10-PCS; principal; 2018-03-07)
PROC: F08Z4FZ Home Management Treatment using Assistive, Adaptive, Supportive or Protective Equipment (ICD-10-PCS; 2018-03-07)
PROC: F06Z6ZZ Communicative/Cognitive Integration Skills Treatment (ICD-10-PCS; 2018-03-07)
PROC: F07M6FZ Therapeutic Exercise Treatment of Musculoskeletal System - Whole Body using Assistive, Adaptive, Supportive or Protective Equipment (ICD-10-PCS; 2018-03-07)
DX: I69.151 Hemiplegia and hemiparesis following nontraumatic intracerebral hemorrhage affecting right dominant side (principal); I69.192 Facial weakness following nontraumatic intracerebral hemorrhage; E11.9 Type 2 diabetes mellitus without complications; E78.00 Pure hypercholesterolemia, unspecified; E78.5 Hyperlipidemia, unspecified; F10.20 Alcohol dependence, uncomplicated; F32.9 Major depressive disorder, single episode, unspecified; F43.20 Adjustment disorder, unspecified; I10 Essential (primary) hypertension; Z79.84 Long term (current) use of oral hypoglycemic drugs; Z87.891 Personal history of nicotine dependence; Z91.14 Patient's other noncompliance with medication regimen